=== PATIENT | male | born 1980 | race Caucasian/White ===

== ENCOUNTER → 2019-08-27 12:55 | Outpatient (CLI) | payer OTHER, SELFPAY ==
--- NOTE | 2019-08-27 13:01 | CT_ITS ---
STUDY: CT ABDOMEN AND PELVIS WITH CONTRAST REASON FOR EXAM: Male, 38 years old. MID ABD PAIN, HERNIA, N/D RADIATION DOSAGE (If Supplied By Facility): CTDIvol = ( 16.30 ) mGy, DLP = ( 1215.17 ) mGycm TECHNIQUE: Transaxial images were obtained from the dome of the diaphragm to the symphysis pubis with oral contrast. Oral and amp; IV Gastrografin and amp; 100mL Isovue-300 was administered. Sagittal and coronal images were reconstructed. Individualized dose optimization techniques were used for this CT. COMPARISON: None. FINDINGS: The visualized lung bases are unremarkable. The visualized portions of the heart are within normal limits. There is decreased attenuation of the liver consistent with steatosis. Normal gallbladder and extrahepatic biliary system. Normal spleen. Normal pancreas. Normal bilateral adrenal glands. Normal right kidney. Normal left kidney. There is a small hiatal hernia. Normal small intestine. Normal colon. The appendix is visualized and appears normal. Normal abdominal aorta. Normal inferior vena cava. Normal retroperitoneum. Normal urinary bladder. There is an umbilical hernia containing fat. The neck of the hernia measures 4.5 cm. Normal osseous structures. CT/Abdomen/Pelvis WITH Contrast IMPRESSION: Diffuse fatty infiltration of the liver. Umbilical hernia containing fat. The neck of the hernia measures 4.5 cm. Electronically Signed: Quincy Dutta, at 14:08 EST , Service support ,
== END ==
PROVIDERS: PCP Family Medicine; Referring Provider Family Medicine; Visit Provider Family Medicine
DX: R10.9 Unspecified abdominal pain (principal); K52.9 Noninfective gastroenteritis and colitis, unspecified; K42.9 Umbilical hernia without obstruction or gangrene
CPT/HCPCS: 74177; Q9967

== ENCOUNTER 2019-09-16 07:16 | Day surgery (SDC) | payer OTHER, SELFPAY ==
[2019-09-06 09:31] VITALS: BMI 36.0
--- NOTE | 2019-09-06 10:03 | HP_ITS ---
Intake Vital Signs 09/06/19 Height 5 ft 7 in 09/06/19 Weight: 230 lb 09/06/19 BP 120/85 H 09/06/19 Blood Pressure Location Rt brachial 09/06/19 Position Sitting 09/06/19 Respiration 16 Intake Visit Reasons: Hernia Head [employer] Tenn[employer] Required: No Is patient in pain?: No Allergies No Known Allergies Allergy (Unverified 09/06/19 09:32) Medications alprazolam 0.5 mg tablet 0.5 mg PO QHS PRN 09/06/19 [History Confirmed 09/06/19] omeprazole 20 mg capsule,delayed release 20 mg PO DAILY 09/06/19 [History Confirmed 09/06/19] sertraline 100 mg tablet 100 mg PO DAILY 09/06/19 [History Confirmed 09/06/19] zolpidem 5 mg tablet 5 mg PO QHS PRN 09/06/19 [History Confirmed 09/06/19] PFSH Medical History Anxiety (Acute) GERD (gastroesophageal reflux disease) (Acute) Surgical History S/P appendectomy (Acute) Family History Mother Bleeding disorder Diabetes HPI HPI HPI: CURT MICHELE, is a 38 M who presents to the office today for HPI HPI Surgical H&P: Yes HPI: CURT MICHELE, is a 38 M who presents to the office today for Umbilical hernia. The patient reports that his umbilical hernia has become very tender. He does have bulging at the umbilical area. He does not have any nausea or vomiting. He reports that he does have acid reflux. ROS General General: Yes weight change and fatigue HEENT HEENT: No difficulty swallowing, eye injury or eye surgery Endo Endocrine: No thyroid disease or diabetes mellitus Skin Skin: No rash or changing moles Musc Musculoskeletal: Yes back problems; no arthritis or rheumatoid arthritis Cardio Cardiovascular: No murmur, pacemaker, heart disease, atrial fibrillation, high blood pressure, heart attack, heart stent, palpitations, shortness of breat with exertion or chest pain Psych Psychiatric: Yes depression and anxiety Resp Respiratory: Yes shortness of breath, Yes sleep apnea, No cough, No COPD, No asthma, No emphysema, No wheezing Gastro Gastrointestinal: Yes abdominal pain, Yes nausea or vomiting, Yes diarrhea, No constipation, No blood in stool, Yes acid reflux, Yes hemorrhoids, Yes ulcers, No gallbladder problem, No black,tarry stools Romeo Hematologic: No blood thinners Neuro Neurologic: Yes system reviewed and no additional complaints, except as docu Exam Const General: cooperative Orientation: alert, oriented x3 HENMT Head: normal to inspection Ears: hearing grossly normal bilaterally Eyes General: appearance normal, both eyes and all related structures Visual Johnson: normal visual johnson by confrontation Neck Neck: normal visual inspection Chest Chest palpation & inspection: normal inspection of the chest Resp Effort & Inspection: normal respiratory effort Auscultation: clear to auscultation bilaterally Cardio Rate: regular rate Rhythm: regular rhythm Heart Sounds: no murmurs GI Inspection: non-distended Palpation: soft, hernia umbilical, nontender Musc Cervical Spine: normal cervical lordosis, cervical ROM normal Skin General: no rashes or lesions noted Neuro General: alert, oriented x3 Cranial Nerves: CN's II-XI intact bilaterally Cognition: normal cognition Extrem General: normal to inspection, full ROM Psych Appearance: grossly normal Affect: normal affect Assessment & Plan Problems 1. Umbilical hernia without obstruction and without gangrene K42.9 Plan The patient has been having increase in pain and size of his umbilical hernia. He had CT scan which did show this umbilical hernia containing fat. Given his size I would recommend a hybrid approach for this umbilical hernia repair. I discussed open and complete laparoscopic approach but I think a hybrid repair would offer him the most minimally invasive procedure as well as getting the mesh behind the fascia. I discussed the hybrid laparoscopic approach with him. I discussed the risks including but not limited to bleeding, infection, injury to underlying bowel, recurrence, mesh infection. The patient understands the risks and is willing to proceed. Booker Ludwig MD Pager: [facility] [address] [place] [address], [address] [place] [address] Office: Coding Level of Care Code Off vis,new,level 4 Diagnoses Umbilical hernia without obstruction and without gangrene K42.9 ??Obstruction and gangrene presence: without obstruction or gangrene Time Spent (min) 45 09/06/19 1003 <Electronically signed by Booker schrader MD> Date _ Booker Ludwig MD I have re-examined the patient. There are no clinical changes since date of exam.
[2019-09-16] VITALS (10 sets, daily range): BP systolic 99–130; BP diastolic 47–93; PULSE 64–100; RESP 15–18; TEMP 36.4–37.1; O2SAT 90–98; BMI 38.6
[2019-09-16] MEDS: Lactated Ringers 1,000 ML 100 ML IV ×2 (07:48→13:55)
[2019-09-16] MEDS: Cefazolin 2 GM in 0.9% Normal Saline 100 ML IV (08:18)
--- NOTE | 2019-09-16 08:50 | HERN_PTH ---
PATIENT: CURT MICHELE [place] [facility] [id number] AGE/SX: 38/M ROOM: RE09/16/[address]: Dr. Booker Ludwig MD : 1980 BED: DIS: 09/16/2019 SPEC #: [id number] RECD: 09/16/19 10:03 STATUS: BROOKE EMANUEL #: [id number] BRANDON: 09/16/19 08:[address]: Booker Ludwig DEPT: SURGICAL PATHOLOGY RECD BY: Abdi Schofield ENTERED: 09/16/19 10:38 SP TYPE: Hernia OTHR DR: Dr. Murtaza Hodge, DO Tissues: HERNIA Procedures: Surgery Specimen Level II HEADER OPERATION: Umbilical hernia repair with mesh PRE-OP DIAGNOSIS: Umbilical hernia TISSUE SUBMITTED: Hernia sac MICROSCOPIC DIAGNOSIS Soft tissue of umbilical region, excision: Consistent with hernia sac. AM:melissa 09/17/19 MICROSCOPIC DESCRIPTION Slides are reviewed. GROSS DESCRIPTION Received in fixative is one container labeled with the patient's name and designated hernia sac. The specimen consists of multiple irregular fragments of yellow-pink soft tissue that in aggregate measure 7 x 6 x 1.5 cm. Serial sections do not reveal mass lesions. Qualification Engineer sections are submitted in one cassette. / AM:melissa 09/16/19 TC:5 CPT: 02039
[2019-09-16] MEDS: Bupiv/Epi 0.25% 30 ML Vial (09:00)
--- NOTE | 2019-09-16 09:53 | PCM.OPRPT ---
Problem List (1) Umbilical hernia without obstruction or gangrene Status: Acute Report of Operation Date of Procedure: 09/16/19 Pre-Operative Diagnosis: Umbilical hernia Post-Operative Diagnosis: Same Surgery/Procedure Performed:: Laparoscopic umbilical hernia repair with mesh Specimen's removed: Hernia sac Description of Procedure: Patient was brought to the operating room and general anesthesia was induced. The abdomen was prepped and draped in usual sterile fashion. An incision was made in the left upper quadrant and using Visiport technique a 5 mm port was placed into the abdomen and the abdomen was insufflated to 15 mmHg. The abdomen was inspected and the hernia contents reduced. Next an incision was made just lateral to the umbilical hernia and the hernia sac was dissected out and removed. The fascial edges were dissected free and then two 0 PDS sutures in a [id number] fashion were placed in the hernia defect. A 12 mm port was then placed through the hernia defect into the abdomen and the abdomen was reinsufflated. A 5 mm port was placed in the right upper quadrant under direct visualization. 11 cm round ventral light ST mesh with echo deployment system was placed through the 12 mm port and the 12 mm port was removed. The PDS sutures were then tightened and tied. The echo positioning system was used to hold the mesh in position and secure strap tacks were used to secure the mesh in 4 quadrants. The deployment system was then removed through 5 mm port . It was removed in entirety. Next using secure strap tacker circumferential tacks were placed around the mesh and 2 rows. Next the air was released from the abdomen and the umbilical port was irrigated and suctioned. Local anesthetic was placed in all the skin incisions and the umbilical skin was tacked to the fascia using a 3-0 Vicryl suture. Interrupted 4-0 Monocryl sutures were then used to close all the skin incisions. Steri-Strips and bandages were then applied. Patient was taken to PACU in stable condition. Patient tolerated the procedure well. Grafts/Implants Used: [address] mesh - Admit VTE Documentation VTE Mechan Device Prophylaxis: SCD's
--- NOTE | 2019-09-16 09:58 | DCINST_ITS ---
Discharge Diet: Light diet - advance as tolerated Discharge Activity: Return to Normal Activity, May Not Drive - for 2-3 days or while taking narcotic pain meds., May Shower - with the bandage in place 1-2 days after surgery. Lifting Restrictions: 20 pounds for 4 weeks. Additional Activity Instructions:: Climbing stairs is fine, walking is encouraged. Sitting in bed may be uncomfortable. Sitting up using your lateral muscles (sitting up sideways) is usually more comfortable. Do not drive, work heavy equipment of sign legal documents for 24 hours. Pain medications may cause nausea, you should typically eat light foods as you take your pain medications. Pain medications may also cause constipation. If you have difficulty with this, discuss with your doctor. Call your doctor if your incision/area has: Continuous Slow Oozing, Sudden Increased Bleeding, Increased Pain/ Swelling, Increased Redness, Foul Smelling Discharge Call your doctor if you observe: Fever of 101 or Higher Suture Line Care: Avoid Pulling/Pushing, Avoid Pinching/Bending Change Dressing in (Days):: 3 - Leave steri-strips for 1 week. May protect with a guaze bandaid. Cleanse incision/area with: Keep Dressing Clean & Dry Allergies/Adverse Reactions: Allergies prochlorperazine [From Compazine] Allergy (Verified 09/16/19 07:29) Other JITTERY, ANXIOUS, SUICIDAL Medications to take at Discharge alprazolam 0.5 mg tablet 0.5 mg PO QHS PRN 09/06/19 omeprazole 20 mg capsule,delayed release 20 mg PO DAILY 09/06/19 sertraline 100 mg tablet 100 mg PO DAILY 09/06/19 zolpidem 5 mg tablet 5 mg PO QHS PRN 09/06/19 Ibuprofen 200 mg PO PRN PRN 09/13/19 Oxycodone HCl/Acetaminophen [Percocet 5-325 mg Tablet] 1 - 2 tab PO Q6H PRN 5 Days #40 tablet 09/16/19 The following prescriptions were given: Oxycodone HCl/Acetaminophen [Percocet 5-325 mg Tablet] 1 - 2 tab PO Q6H PRN 5 Days #40 tablet PRN Reason: Pain Score 4-10/10 Transmission Status: Sent to [facility] Test Results: Test results from this visit will be discussed in further detail at your follow- up appointment, if applicable. Please Follow Up With: Booker Ludwig MD When: Please call to schedule 2 week follow up appointment. [phone]
[2019-09-16] MEDS: oxyCODONE 5 MG Tablet PO (10:45)
[2019-09-16] MEDS: Tamsulosin HCl 0.4 MG Capsule PO (15:14)
--- NOTE | 2019-09-16 15:16 | SUR.PHASEII ---
Addendum entered by Emily Brown 09/16/19 15:17: STRAIGHT CATH FOR 1200 ML CLEAR YELLOW URINE. Original Note: BLADDER SCAN FOR [address] COLBY WHO ORDERED FLOMAX x 1, STRAIGHT CATH PATIENT AND MAY D/C HOME. IF UNABLE TO URINATE WITHIN 8 HOURS [1100 P.M.], REPORT TO THE [facility] EMERGENCY ROOM OR CALL DR COLBY.
== END 2019-09-16 15:50 | disposition home or self-care (01) ==
LOC: SDC 07:17 → AC 07:19
PROVIDERS: PCP Family Medicine; Referring Provider Surgery; Visit Provider Surgery
PROC: 0WQF4ZZ Repair Abdominal Wall, Percutaneous Endoscopic Approach (ICD-10-PCS; CPT 49652; principal; 2019-09-16 08:30)
DX: K42.9 Umbilical hernia without obstruction or gangrene (principal); K21.9 Gastro-esophageal reflux disease without esophagitis; F41.9 Anxiety disorder, unspecified; F32.9 Major depressive disorder, single episode, unspecified; K58.9 Irritable bowel syndrome, unspecified; K57.90 Diverticulosis of intestine, part unspecified, without perforation or abscess without bleeding; Z79.899 Other long term (current) drug therapy
CPT/HCPCS: 49652; 51702; 80048; 85025; 88302; 96361; 96374; 96375; 99284; J7030; J7120; A4216; J2405

== ENCOUNTER 2019-09-16 21:46 | Emergency (ER) | payer OTHER, SELFPAY ==
[2019-09-16 07:33] VITALS: BMI 38.6
[2019-09-16 21:47] VITALS: BP 131/78; PULSE 81; RESP 18; TEMP 36.9; O2SAT 97; BMI 36.0
[2019-09-16] MEDS: Lidocaine Jelly 2% 20 ML Syringe (URO-JET) 20 APPLIC TOPICAL (22:11)
[2019-09-16] MEDS: Morphine 4 MG/ML Syringe IV (22:12)
[2019-09-16] MEDS: Ondansetron 4 MG/2 ML Vial IV (22:13)
[2019-09-16 22:27] LABS: Absolute Neutrophil Count 10.2 X10^3/uL (2.0-7.7); Basophil# 0.06 X10^3/uL; Basophil% 0.5 % (0-1); Eosinophil# 0.06 X10^3/uL; Eosinophils% 0.5 % (0-5); Hematocrit 39.8 % (40-54); Lymphocyte % 11.1 % (19-41); Mean Corp Hgb Conc 35.2 g/dL (32-36); Mean Corpuscular Hgb 29.3 pg (27.0-32.0); Mean Corpuscular Volume 83.3 fL (80-94); Mean Platelet Vol. 9.5 fl (6.2-12.0); Monocyte# 0.79 X10^3/uL; Monocyte% 6.3 % (0-10); NRBC Flagged by Analyzer 0 % (0-5); Neutrophil # 10.22 X10^3/uL (2.7-7.7); Neutrophil % 80.9 % (47-70); Platelet Count 215 K/mm3 (150-450); RBC Distribution Width CV 12.3 % (11.6-14.6); RBC Distribution Width SD 37.7 fl (35.1-43.9); Red Blood Count 4.78 M/mm3 (4.6-6.2); White Blood Count 12.6 K/mm3 (4.4-11.0)
[2019-09-16 22:37] VITALS: PULSE 68; RESP 16; O2SAT 97
[2019-09-16 22:40] LABS: Anion Gap 7 (5-15); BUN 11 mg/dL (7-18); BUN/Creat Ratio 13.2 RATIO (10-20); Calcium,Total 8.6 mg/dL (8.5-10.1); Chloride 98 mmol/L (98-107); Creatinine, Serum 0.83 mg/dL (0.70-1.30); EST Glomerular Filtration Rate 108 mL/min (>60); Est Glom Filt Rate - Afr Amer 131 mL/min (>60); Estimated Creatinine Clearance 110.61 ml/min; Glucose 92 mg/dL (74-106); Potassium 3.7 mmol/L (3.5-5.1); Sodium Level 130 mmol/L (136-145)
--- NOTE | 2019-09-16 22:40 | ED.VIS.GEN ---
History of Present Illness Chief Complaint: Complaint Informant: Patient Onset: Today Context: Gradual Onset Timing: Continuous Current Severity: Moderate Maximum Severity: Moderate Narrative: The patient is an otherwise healthy 38-year-old male that presents to the emergency department with urinary retention. Patient had outpatient umbilical hernia repair today. He was discharged from same-day surgery. He states since being home, he has not been able to urinate. He states he got nauseated and felt lightheaded. He states he vomited twice and had some increasing abdominal pain. He states the pain has improved, but he still not been able to urinate. He states he has had urinary retention remotely, but has never had any problems with his prostate or bladder. He denies any fevers or chills. He is otherwise been in his normal state of health. Prior similar symptoms: Yes Recent Illness/Hospitalization: No Past Medical History - Allergies and Home Meds Allergies/Adverse Reactions: Allergies prochlorperazine [From Compazine] Allergy (Verified 09/16/19 21:50) Other JITTERY, ANXIOUS, SUICIDAL Primary Care Physician: Murtaza Hodge DO [Primary Care Provider] - Prior records reviewed: Yes Past Medical History: None Surgical History: herniorrhaphy Smoking Status: Never smoker Review of Systems General: Denies: Chills, Fever, Sweats Eyes: Denies: Visual changes - bilaterally, Diplopia ENT: Denies: Rhinorrhea, Sore throat Cardiovascular: Denies: Chest pain, Palpitations Respiratory: Denies: Dyspnea, Cough, Dyspnea on exertion Gastrointestinal: Reports: Abdominal pain, Nausea. Denies: Vomiting, Diarrhea, Melena, Hematochezia Genitourinary: Denies: Dysuria, Hematuria, Frequency Musculoskeletal: Denies: Back pain, Extremity Pain Skin: Denies: Rash, Wounds Neurological: Denies: Headache, Weakness, Numbness Physical Exam Vital Signs/Narrative: Vital Signs Temp Pulse Resp BP Pulse Ox 09/16/19 22:37 68 16 97 09/16/19 21:47 98.5 F 81 18 131/78 H 97 Inital Vital Signs reviewed: Yes General: Well nourished, Well developed, No Acute Distress Head: Normocephalic, Atraumatic Eyes: Perrl, EOMI ENT: Moist mucous membranes, No rhinorrhea Neck: Supple, Nontender Cardiovascular: Regular rate, Regular rhythm, No murmurs Respiratory: No distress, CTA bilaterally, Chest nontender Abdomen: Soft, Nondistended, Normal bowel sounds, Tender, - - Incision is clean and dry. There is no active bleeding. He has no focal tenderness.. Negative for: Guarding, Rebound tenderness Back: Nontender, Normal Inspection Extremities: Nontender, No edema Skin: Normal color, No rash Neurological: Alert, Oriented x3, Cranial nerves II-XII grossly intact, Normal Strength, Normal Sensation Psychological: Normal affect, Normal Mood Diagnostic/Tx/Re-eval - Medical Decision Making The patient presents with acute urinary retention after surgery. He also has some nausea mild abdominal pain. He has no focal tenderness. My suspicion for dangerous intra-abdominal process is low. Patient was treated with fluids, analgesics, and antiemetics. He was feeling improved. Screening labs were obtained. Rg catheter was placed and the patient had about 800 cc of clear urine out. At this point, I do feel it is safe for outpatient follow-up. We will leave the Rg in place for the next few days as I do feel that his urinary retention is likely a side effect of his anesthesia. He is comfortable with this plan of care and will be discharged home. Impression 1. Acute urinary retention status post surgery ED Disposition - Plan for ED Patient: Instructions: URINARY RETENTION, Male Referrals: Murtaza Hodge DO [Primary Care Provider] - 3-5 Days (For catheter removal)
[2019-09-16 23:10] VITALS: BP 127/74; PULSE 68; RESP 18; O2SAT 96
== END 2019-09-16 23:12 | disposition home or self-care (01) ==
LOC: ED 23:02
PROVIDERS: Emergency Provider Emergency Medicine; PCP Family Medicine
DX: R33.9 Retention of urine, unspecified (principal); Z98.890 Other specified postprocedural states; R11.2 Nausea with vomiting, unspecified; R42 Dizziness and giddiness
CPT/HCPCS: 51702; 80048; 85025; 96361; 96374; 96375; 99284; J7030; A4216; J2405

== ENCOUNTER → 2020-04-21 14:02 | Outpatient (CLI) | payer OTHER, SELFPAY ==
[2019-09-19 10:58] VITALS: BMI 36.0
[2020-04-21 17:04] LABS: Absolute Lymphocyte Count 2.86 X10^3/uL (0.83-4.51); Absolute Neutrophil Count 5.2 X10^3/uL (2.0-7.7); Basophil# 0.09 X10^3/uL; Eosinophil# 0.32 X10^3/uL; Eosinophils% 3.5 % (0-5); Hematocrit 43.8 % (40-54); Hemoglobin 14.9 g/dL (13.0-16.5); Lymphocyte # 2.86 X10^3/ul (4.0); Lymphocyte % 31.4 % (19-41); Mean Corpuscular Volume 85.2 fL (80-94); Mean Platelet Vol. 10.3 fl (6.2-12.0); Monocyte# 0.57 X10^3/uL; Monocyte% 6.3 % (0-10); NRBC Flagged by Analyzer 0 % (0-5); Neutrophil # 5.16 X10^3/uL (2.7-7.7); Neutrophil % 56.5 % (47-70); Platelet Count 264 K/mm3 (150-450); RBC Distribution Width CV 12.9 % (11.6-14.6); RBC Distribution Width SD 39.7 fl (35.1-43.9); Red Blood Count 5.14 M/mm3 (4.6-6.2); White Blood Count 9.1 K/mm3 (4.4-11.0)
[2020-04-21 17:52] LABS: ALB/GLOB Ratio 1.3 RATIO (0.9-2.4); AST(SGOT) 47 U/L (15-37); Alanine Aminotransfer ALT/SGPT 114 U/L (16-61); Albumin, Serum 4.4 g/dL (3.2-5.0); Alkaline Phosphatase 93 U/L (45-117); Anion Gap 9 (5-15); BUN 16 mg/dL (7-18); BUN/Creat Ratio 16.5 RATIO (10-20); CRP < 2.90 mg/L (0.0-3.0); Calcium,Total 8.7 mg/dL (8.5-10.1); Chloride 101 mmol/L (98-107); Creatinine, Serum 0.97 mg/dL (0.70-1.30); EST Glomerular Filtration Rate 91 mL/min (>60); Est Glom Filt Rate - Afr Amer 110 mL/min (>60); Globulin 3.5 g/dL (2.2-4.2); Glucose 117 mg/dL (74-106); Lipase 211 U/L (73-393); Potassium 3.8 mmol/L (3.5-5.1); Protein, Total 7.9 g/dL (6.4-8.2); Sodium Level 136 mmol/L (136-145)
== END ==
PROVIDERS: PCP Family Medicine; Visit Provider Family Medicine
DX: R10.9 Unspecified abdominal pain (principal)
CPT/HCPCS: 36415; 80053; 83690; 85025; 86140

== ENCOUNTER 2021-02-06 22:11 | Emergency (ER) | payer OTHER, SELFPAY ==
[2019-09-19 10:58] VITALS: BMI 36.0
[2021-02-06 22:11] VITALS: BP 124/79; PULSE 97; RESP 15; TEMP 37.4; O2SAT 88; BMI 38.3
--- NOTE | 2021-02-06 22:41 | EKG12_ITS ---
Test Reason : DYSRHYTHMIA Blood Pressure : / mmHG Vent. Rate : 085 BPM Atrial Rate : 085 BPM P-R Int : 122 ms QRS Dur : 074 ms QT Int : 346 ms P-R-T Axes : 025 013 028 degrees QTc Int : 411 ms Normal sinus rhythm Normal ECG Confirmed by NBA VILLA, JUSTIN ([id number]), communications editor SHWETHA RAM ([id number]) on 02/11/2021 1:18:01 PM Referred By: ROBBIN Confirmed By:JUSTIN ARANGO MD
--- NOTE | 2021-02-06 22:42 | EX.ED.DYSGE1 ---
HPI History of Present Illness Chief Complaint: General Illness Informant: patient Onset/Context/Timing Onset: Days (8) Context: Gradual Onset Timing: Continuous Quality: Wheezing Location: Chest Worsened by: At night Relieved by: Nothing Narrative Narrative: Patient presents with shortness of breath and myalgias that have been getting worse over the past 8 days. Patient states he took a home COVID-19 test which was positive. Patient states his tested positive for COVID-19 3 days before that. Patient states he was given a prescription for Zithromax and ivermectin by his primary care physician. Patient states this has not been helping. Patient states he feels like he is wheezing in his chest. Patient admits to a cough with some yellow-green sputum. Patient admits to chills at home. Patient also admits to some nausea, vomiting, diarrhea. [facility] Medical History (Updated 02/07/21 @ 02:[address] Tomás Whitaker DO) Anxiety GERD (gastroesophageal reflux disease) Home Medications alprazolam 0.5 mg tablet 0.5 mg PO BID PRN 09/06/19 [History Last Taken Unknown] omeprazole 20 mg capsule,delayed release 20 mg PO DAILY 09/06/19 [History Last Taken 09/16/19 06:00] sertraline 100 mg tablet 100 mg PO DAILY 09/06/19 [History Last Taken Unknown] zolpidem 5 mg tablet 5 mg PO QHS PRN 09/06/19 [History Last Taken Unknown] dexamethasone [Decadron] 6 mg PO DAILY #7 tab 02/07/21 [Rx Last Taken Unknown] Allergy/AdvReac Type Severity Reaction Status Date / Time prochlorperazine Allergy Other Verified 02/06/21 22:19 [From Compazine] Family History Mother Bleeding disorder Diabetes Surgical History S/P appendectomy Social History Smoking Status: Never smoker alcohol intake: never ROS ROS ED Constitutional Constitutional ED: Reports chills and subjective Eyes Eyes: Reports blurry vision; Denies diplopia ENT ENT ED: Reports rhinorrhea and sore throat Cardiovascular Cardiovascular: Reports chest pain; Denies palpitations Respiratory/Chest Respiratory/Chest: Reports cough, dyspnea and sputum Gastrointestinal Gastrointestinal: Reports diarrhea, nausea and vomiting Genitourinary Genitourinary ED: Denies dysuria or hematuria Musculoskeletal Musculoskeletal: Reports arthralgias and myalgias Integumentary Denies abscess or rash Neurologic Neurologic: Reports headache(s) and weakness Allergic/Immunologic Allergic/Immunologic ED: Denies mouth swelling, tongue swelling or urticaria EXAM Physical Exam Const Vital Signs: 02/06/21 22:11 02/06/21 23:37 02/07/21 00:00 Temperature 99.4 F H 100.1 F H 99.0 F Temperature Source Oral Temporal Temporal Pulse Rate 97 82 82 Respiratory Rate 15 16 16 Blood Pressure 124/79 H 127/83 H 117/75 Blood Pressure Mean 94 97 89 Pulse Ox 88 96 96 Oxygen Delivery Method Room Air Room Air Room Air 02/07/21 00:11 02/07/21 01:52 Temperature 99.0 F Temperature Source Temporal Pulse Rate 82 71 Respiratory Rate 17 21 H Blood Pressure 117/75 127/76 H Blood Pressure Mean 89 93 Pulse Ox 96 94 Oxygen Delivery Method Room Air Room Air Positive well nourished and well developed General Appearance ED: well developed HEENT Reports moist mucous membranes Neck supple and no JVD Resp normal respiratory effort and clear to auscultation bilaterally Cardio regular rate, regular rhythm and no murmurs GI normal to inspection, nondistended, normoactive bowel sounds and non-tender Palpation: soft Extremity normal to inspection General Extremety ED: Negative for edema or tenderness General Extremity: Negative for edema Neuro oriented x3, CN's II-XII intact bilaterally and no sensory deficits noted Sensorium / Orientation: alert Motor Exam: strength 5/5 throughout Psych mental status grossly normal Skin no rashes or lesions noted MDM MDM MDM Narrative Medical decision making narrative: EKG was obtained. On my interpretation, it showed a normal sinus rhythm with a rate of 85. LA interval, QRS interval, and QTc intervals were all normal. [place] was normal. There are no acute ST or T wave changes. CBC was within normal limits. Comprehensive metabolic profile was normal. Lactate was normal. High-sensitivity troponin was normal. Initial COVID-19 rapid antigen was negative. Portable chest x-ray was obtained. There is 1 view. On my interpretation, there are bilateral infiltrates consistent with COVID-19 pneumonia. There is no cardiomegaly noted. Bony thorax is normal. Radiologist also interpreted the x-ray and agrees. A COVID-19 PCR was obtained and was positive. Patient was given 6 puffs of an albuterol inhaler. Patient is feeling better on reevaluation. Patient was able to ambulate and maintain oxygen saturation of 94% on room air. Because of this I think the patient is able to go home. Patient will be given a prescription for Decadron. Patient was instructed to follow-up with his primary care physician in 3 to 5 days. Patient understood and was agreeable with the plan. All questions were answered. Lab Data Attestation: I reviewed the patient's lab results. Labs: Laboratory Results - last 24 hr 02/06/21 02/06/21 02/06/21 23:00 23:00 23:00 WBC 5.8 RBC 4.96 Hgb 14.2 Hct 42.1 MCV 84.9 MCH 28.6 MCHC 33.7 RDW Std Deviation 39.8 RDW Coeff of Dea 12.9 Plt Count 182 MPV 9.8 Immature Gran % (Auto) 2.100 H Neut % (Auto) 68.3 Lymph % (Auto) 24.4 Karnes % (Auto) 3.5 Eos % (Auto) 1.2 Baso % (Auto) 0.5 Absolute Neuts (auto) 4.0 Absolute Lymphs (auto) 1.41 Nucleated RBC % 0 Differential Comment SCANNED Reactive Lymphocytes RARE Sodium 136 Potassium 3.8 Chloride 106 Carbon Dioxide 22.0 Anion Gap 8 BUN 12 Creatinine 0.84 Estim Creat Clear Calc 107.11 Est GFR (MDRD) Af Amer 129 Est GFR (MDRD) Non-Af 107 BUN/Creatinine Ratio 14.3 Glucose 107 H Lactic Acid 0.8 Calcium 8.3 L Total Bilirubin 0.40 AST 78 H ALT 117 H Alkaline Phosphatase 83 Troponin I High Sens < 3.0 L Total Protein 7.6 Albumin 3.8 Globulin 3.8 Albumin/Globulin Ratio 1.0 COVID-19 (JOHN) 02/06/21 23:32 WBC RBC Hgb Hct MCV MCH MCHC RDW Std Deviation RDW Coeff of Dea Plt Count MPV Immature Gran % (Auto) Neut % (Auto) Lymph % (Auto) Karn[place] % (Auto) Eos % (Auto) Baso % (Auto) Absolute Neuts (auto) Absolute Lymphs (auto) Nucleated RBC % Differential Comment Reactive Lymphocytes Sodium Potassium Chloride Carbon Dioxide Anion Gap BUN Creatinine Estim Creat Clear Calc Est GFR (MDRD) Af Amer Est GFR (MDRD) Non-Af BUN/Creatinine Ratio Glucose Lactic Acid Calcium Total Bilirubin AST ALT Alkaline Phosphatase Troponin I High Sens Total Protein Albumin Globulin Albumin/Globulin Ratio COVID-19 (JOHN) Positive Radiography Chest X-Ray - ED: 1 View, Read by ED Physician, Read by Radiologist, Right Infiltrate and Left Infiltrate Diagnostic Testing: Radiology Impression Chest X-Ray 02/06/21 22:46 IMPRESSION: Bilateral airspace opacities concerning for infection. Electronically Signed: Rocky Rodriguez MD at 23:12 EDT Tel , Service support , EKG Initial EKG: Attestation: I personally reviewed and interpreted this EKG as follows: Interpretation: Sinus Rhythm (85) and No Acute Injury Pattern Discharge Plan Triage Chief Complaint: General Illness ED Provider: Tomás Whitaker Dx/Rx/DC Orders Clinical Impression: Pneumonia due to COVID-19 virus Instructions: Coronavirus Disease 2019 (COVID-19): Caring for Yourself or Others Prescriptions: New dexamethasone [Decadron] 6 mg tablet 6 mg PO DAILY Qty: 7 RF: 0 No Action sertraline 100 mg tablet 100 mg PO DAILY RF: 0 omeprazole 20 mg capsule,delayed release(DR/EC) 20 mg PO DAILY RF: 0 zolpidem 5 mg tablet 5 mg PO QHS PRN (Reason: Sleep) RF: 0 alprazolam [Xanax] 0.5 mg tablet 0.5 mg PO BID PRN (Reason: Anxiety) RF: 0 Primary Care Provider: Murtaza Hodge Referrals: Murtaza Hodge DO [Primary Care Provider] - 3-5 Days Disposition Disposition: Home, Self Care
--- NOTE | 2021-02-06 22:44 | ED.RN ---
NO OLD EKGS IN MUSE
--- NOTE | 2021-02-06 22:46 | RAD_ITS ---
INDICATION: cough EXAMINATION/TECHNIQUE: X-RAY - XR Chest 1 View COMPARISON: None. FINDINGS: Bilateral airspace opacities. The cardiomediastinal silhouette is unremarkable. No pleural effusion or pneumothorax. No acute osseous abnormalities. RAD/Chest 1 View (Portable) IMPRESSION: Bilateral airspace opacities concerning for infection. Electronically Signed: Rocky Rodriguez MD at 23:12 EDT Tel , Service support ,
[2021-02-06 23:35] LABS: AST(SGOT) 78 U/L (15-37); Alanine Aminotransfer ALT/SGPT 117 U/L (16-61); Albumin, Serum 3.8 g/dL (3.2-5.0); Alkaline Phosphatase 83 U/L (45-117); Anion Gap 8 (5-15); BUN 12 mg/dL (7-18); BUN/Creat Ratio 14.3 RATIO (10-20); Calcium,Total 8.3 mg/dL (8.5-10.1); Chloride 106 mmol/L (98-107); Creatinine, Serum 0.84 mg/dL (0.70-1.30); EST Glomerular Filtration Rate 107 mL/min (>60); Est Glom Filt Rate - Afr Amer 129 mL/min (>60); Estimated Creatinine Clearance 107.11 ml/min; Globulin 3.8 g/dL (2.2-4.2); Glucose 107 mg/dL (74-106); Potassium 3.8 mmol/L (3.5-5.1); Protein, Total 7.6 g/dL (6.4-8.2); Sodium Level 136 mmol/L (136-145); Troponin-I HS < 3.0 pg/mL (3.0-78.5)
[2021-02-06 23:37] VITALS: BP 127/83; PULSE 82; RESP 16; TEMP 37.8; O2SAT 96
[2021-02-06 23:37] LABS: Absolute Lymphocyte Count 1.41 X10^3/uL (0.83-4.51); Basophil# 0.03 X10^3/uL; Basophil% 0.5 % (0-1); Eosinophil# 0.07 X10^3/uL; Eosinophils% 1.2 % (0-5); Hematocrit 42.1 % (40-54); Hemoglobin 14.2 g/dL (13.0-16.5); Lymphocyte # 1.41 X10^3/ul (0.83-4.51); Lymphocyte % 24.4 % (19-41); Mean Corp Hgb Conc 33.7 g/dL (32-36); Mean Corpuscular Hgb 28.6 pg (27.0-32.0); Mean Corpuscular Volume 84.9 fL (80-94); Mean Platelet Vol. 9.8 fl (6.2-12.0); Monocyte% 3.5 % (0-10); NRBC Flagged by Analyzer 0 % (0-5); Neutrophil # 3.96 X10^3/uL (2.7-7.7); Neutrophil % 68.3 % (47-70); POSITIVE MORPHOLOGY YES; Platelet Count 182 K/mm3 (150-450); RBC Distribution Width CV 12.9 % (11.6-14.6); RBC Distribution Width SD 39.8 fl (35.1-43.9); Red Blood Count 4.96 M/mm3 (4.6-6.2); White Blood Count 5.8 K/mm3 (4.4-11.0)
[2021-02-06 23:44] LABS: Lactic Acid 0.8 mmol/L (0.4-1.9)
[2021-02-06 23:49] LABS: Differential Indicated SCAN CRITERIA MET
[2021-02-07] VITALS: BP 117/75; PULSE 82; RESP 16; TEMP 37.2; O2SAT 96
[2021-02-07 00:11] VITALS: BP 117/75; PULSE 82; RESP 17; TEMP 37.2; O2SAT 96
[2021-02-07 00:16] LABS: Differential Comment SCANNED; Reactive Lymphocyte RARE
[2021-02-07] MEDS: Acetaminophen 500 MG Tablet 1000 MG PO (00:17)
[2021-02-07 00:59] LABS: Probe Check PASS; Specimen Processing Control PASS
[2021-02-07 01:10] VITALS: O2SAT 95
[2021-02-07 01:52] VITALS: BP 127/76; PULSE 71; RESP 21; O2SAT 94
[2021-02-07 02:06] VITALS: BP 121/75; PULSE 79; RESP 17; TEMP 37.2; O2SAT 94
== END 2021-02-07 02:06 | disposition home or self-care (01) ==
PROVIDERS: Emergency Provider Emergency Medicine; PCP Family Medicine
DX: U07.1 COVID-19 (principal); J12.82 Pneumonia due to coronavirus disease 2019; F41.9 Anxiety disorder, unspecified; K21.9 Gastro-esophageal reflux disease without esophagitis; Z79.899 Other long term (current) drug therapy
CPT/HCPCS: 71045; 80053; 83605; 84484; 85025; 87040; 87426; 87635; 93005; 96360; 99285; J7030; U0005; U0003

== ENCOUNTER → 2021-05-17 09:08 | Outpatient (CLI) | payer OTHER, SELFPAY ==
--- NOTE | 2021-05-17 09:11 | VDLE_ITS ---
Reason For Study: Pain Procedure LEFT This is a venous duplex using B-mode, color GSV is normal. flow and spectral Doppler. CFV is compressible, spontaneous, phasic, Exam performed in department. competent, and demonstrates normal A preliminary report was called and/or faxed augmentation. to [facility]. FV is compressible, spontaneous, phasic, competent and demonstrates normal augmentation. POP V is compressible, spontaneous, phasic, competent and demonstrates normal augmentation. T/P Trunk is compressible. PTV is compressible. LT PerV is compressible. VL/Venous Duplex US, Unilateral Interpretation Summary Deep veins of the left lower extremity are patent and compressible segmentally. There is no evidence of left lower extremity deep vein thrombosis. Valvular competence appears intac t within the proximal deep venous system on the left . The left great saphenous vein appears patent a nd compressible segmentally. Ordering Physician: Murtaza Hodge Referring Physician: Murtaza Hodge Performed By: Aida Cunningham RVT
== END ==
PROVIDERS: PCP Family Medicine; Referring Provider Family Medicine; Visit Provider Family Medicine
DX: M79.662 Pain in left lower leg (principal)
CPT/HCPCS: 93971

== ENCOUNTER → 2022-04-08 | Outpatient (CLI) | payer OTHER, SELFPAY ==
[2022-04-08 15:40] LABS: Erythrocyte Sedimentation Rate 1 mm/hr (0-20)
[2022-04-08 16:18] LABS: CRP < 2.90 mg/L (0.0-3.0); Rheumatoid Factor < 10.0 IU/mL (<15)
[2022-04-11 14:47] LABS: ANTINUCLEAR ANTIBODIES DIRECT Negative (Negative)
[2022-04-13 16:41] LABS: CCP IgG Antibodies 6 units (0-19)
== END | disposition home or self-care (01) ==
LOC: MTLAB 13:57
PROVIDERS: PCP Family Medicine; Referring Provider Family Medicine; Visit Provider Family Medicine
DX: M13.0 Polyarthritis, unspecified (principal)
CPT/HCPCS: 36415; 85652; 86038; 86140; 86200; 86225; 86235; 86431

== ENCOUNTER → 2022-12-21 | Outpatient (CLI) | payer OTHER, SELFPAY ==
--- NOTE | 2022-12-21 11:20 | RAD_ITS ---
STUDY: X-RAY - ABDOMEN/PELVIS REASON FOR EXAM: Male, 41 years old. Period left rib pain. TECHNIQUE: Single AP view of the abdomen / pelvis. COMPARISON: CT of the abdomen and pelvis, August 27, 2019. FINDINGS: Normal visualized lung bases. There is an unremarkable bowel gas pattern. There is no demonstrated free abdominal air. The visualized liver, spleen and kidneys are grossly normal in size and morphology. Normal soft tissue structures. Normal visualized osseous structures. RAD/Abdomen Single View IMPRESSION: Normal x-ray examination of the abdomen and pelvis. Electronically Signed: Luis Gaspar DO at 22:39 EDT ,
[2022-12-21 12:16] LABS: Absolute Lymphocyte Count 2.09 X10^3/uL (0.83-4.51); Absolute Neutrophil Count 4.8 X10^3/uL (2.0-7.7); Basophil# 0.08 X10^3/uL; Eosinophil# 0.22 X10^3/uL; Eosinophils% 2.8 % (0-5); Hematocrit 42.5 % (40-54); Hemoglobin 13.9 g/dL (13.0-16.5); Lymphocyte # 2.09 X10^3/ul (0.83-4.51); Lymphocyte % 26.8 % (19-41); Mean Corp Hgb Conc 32.7 g/dL (32-36); Mean Corpuscular Volume 85.7 fL (80-94); Monocyte% 6.4 % (0-10); NRBC Flagged by Analyzer 0 % (0-5); Neutrophil # 4.75 X10^3/uL (2.7-7.7); Neutrophil % 61.1 % (47-70); Platelet Count 242 K/mm3 (150-450); RBC Distribution Width CV 13.1 % (11.6-14.6); Red Blood Count 4.96 M/mm3 (4.6-6.2); White Blood Count 7.8 K/mm3 (4.4-11.0)
[2022-12-21 12:37] LABS: ALB/GLOB Ratio 1.3 RATIO (0.9-2.4); AST(SGOT) 23 U/L (15-37); Alanine Aminotransfer ALT/SGPT 59 U/L (16-61); Albumin, Serum 4.1 g/dL (3.2-5.0); Alkaline Phosphatase 73 U/L (45-117); Anion Gap 8 (5-15); BUN 15 mg/dL (7-18); BUN/Creat Ratio 16.3 RATIO (10-20); Calcium,Total 8.7 mg/dL (8.5-10.1); Chloride 105 mmol/L (98-107); Cholesterol 186 mg/dL (200); Creatinine, Serum 0.92 mg/dL (0.70-1.30); EST Glomerular Filtration Rate 95 mL/min (>60); Est Glom Filt Rate - Afr Amer 115 mL/min (>60); Globulin 3.2 g/dL (2.2-4.2); Glucose 115 mg/dL (74-106); High Density Lipoprotein 58 mg/dL; Potassium 4.1 mmol/L (3.5-5.1); Protein, Total 7.3 g/dL (6.4-8.2); Sodium Level 139 mmol/L (136-145); Triglycerides 210 mg/dL; Very Low Density Lipoprotein 42 mg/dL (5-40)
[2022-12-21 12:45] LABS: Hemoglobin A1c 5.9 % (3.8-5.6)
[2022-12-22 16:09] LABS: Endomysial Antibody IgA Negative (Negative); Immunoglobulin A 129 mg/dL (90-386); t-Transglutaminase IgA <2 U/mL (0-3)
== END | disposition home or self-care (01) ==
PROVIDERS: PCP Family Medicine; Referring Provider Family Medicine; Visit Provider Family Medicine
DX: Z00.00 Encounter for general adult medical examination without abnormal findings (principal); R10.12 Left upper quadrant pain; R10.2 Pelvic and perineal pain
CPT/HCPCS: 36415; 74018; 80053; 80061; 82784; 83036; 83516; 85025; 86255

== ENCOUNTER 2023-03-05 15:53 | Emergency (ER) | payer OTHER, SELFPAY ==
[2023-03-05 15:55] VITALS: BP 141/95; PULSE 75; RESP 18; TEMP 35.8; O2SAT 98; BMI 42.2
--- NOTE | 2023-03-05 16:35 | RAD_ITS ---
STUDY: X-RAY CHEST REASON FOR EXAM: Male, 42 years old. fall TECHNIQUE: Frontal and lateral views of the chest. COMPARISON: 02/06/2021. FINDINGS: The lungs are clear and expanded. There is no demonstrated pleural abnormality. Normal size heart. Normal mediastinum and rubina. Normal visualized pulmonary arteries. Normal visualized aortic arch and descending thoracic aorta. Normal visualized thoracic spine. Normal visualized ribs, clavicles, and shoulders. There is no demonstrated abnormality of the visualized soft tissue structures of the upper abdomen. RAD/Chest PA and Lateral IMPRESSION: Normal x-ray examination of the chest. Electronically Signed: Nick Wills MD at 17:25 EDT ,
--- NOTE | 2023-03-05 17:47 | CT_ITS ---
STUDY: CT ABDOMEN AND PELVIS WITH CONTRAST REASON FOR EXAM: Male, 42 years old. Blunt trauma, pain right upper quadrant with guard -- TRAUMA ONLY: IV Contrast. Dont wait for creatinine RADIATION DOSAGE (If Supplied By Facility): CTDIvol = ( 17.02 ) mGy, DLP = ( 1283.48 ) mGycm TECHNIQUE: Transaxial images were obtained from the dome of the diaphragm to the symphysis pubis without oral contrast. IV 100mL Isovue-370 was administered. Sagittal and coronal images were reconstructed. Individualized dose optimization techniques were used for this CT. COMPARISON: 08/27/2019. FINDINGS: The visualized lung bases are unremarkable. The visualized portions of the heart are within normal limits. There is decreased attenuation of the liver consistent with steatosis. There is hepatomegaly. Normal gallbladder and extrahepatic biliary system. There is mild splenomegaly. Normal pancreas. Normal bilateral adrenal glands. Normal right kidney. Normal left kidney. Evaluation of the GI tract is limited by absence of oral contrast. Cannot exclude stomach wall thickening. No dilated loops of bowel or evidence for obstruction. Cannot exclude segmental thickening of the march of the small or large bowel. Cannot exclude enteritis or colitis. Appendix within normal limits. Normal abdominal aorta. Normal inferior vena cava. Normal retroperitoneum. Normal urinary bladder. There is a small umbilical hernia containing fat. Normal osseous structures. CT/Abdomen/Pelvis WITH Contrast IMPRESSION: Hepatosplenomegaly. No acute abnormalities. Electronically Signed: Nick Wills MD at 18:47 EDT ,
[2023-03-05 18:34] LABS: Absolute Lymphocyte Count 2.54 X10^3/uL (0.83-4.51); Absolute Neutrophil Count 6.2 X10^3/uL (2.0-7.7); Basophil# 0.07 X10^3/uL; Basophil% 0.7 % (0-1); Eosinophil# 0.11 X10^3/uL; Eosinophils% 1.1 % (0-5); Hematocrit 39.2 % (40-54); Hemoglobin 13.4 g/dL (13.0-16.5); Lymphocyte # 2.54 X10^3/ul (0.83-4.51); Lymphocyte % 26.2 % (19-41); Mean Corp Hgb Conc 34.2 g/dL (32-36); Mean Corpuscular Hgb 28.5 pg (27.0-32.0); Mean Corpuscular Volume 83.2 fL (80-94); Mean Platelet Vol. 9.4 fl (6.2-12.0); Monocyte# 0.65 X10^3/uL; Monocyte% 6.7 % (0-10); NRBC Flagged by Analyzer 0 % (0-5); Neutrophil # 6.18 X10^3/uL (2.7-7.7); Neutrophil % 63.8 % (47-70); Platelet Count 223 K/mm3 (150-450); RBC Distribution Width CV 13.2 % (11.6-14.6); RBC Distribution Width SD 40.1 fl (35.1-43.9); Red Blood Count 4.71 M/mm3 (4.6-6.2); White Blood Count 9.7 K/mm3 (4.4-11.0)
--- NOTE | 2023-03-05 18:34 | EX.ED.GENINJ ---
HPI History of Present Illness Chief Complaint: Chest Other Detail of Chief Complaint: Injury lower right rib cage and right upper quadrant status post fall Informant: patient and spouse/S.O. Onset/Context/Timing Onset: Today and Hours Mechanism/Context: Blunt Injury and Fall Quality of Pain: Dull, Aching and Throbbing Location: Midclavicular posterior axillary line right side over ribs [phone] and righ Current Severity: Mild Maximum Severity: Severe Worsened by: Movement, breathing and palpation Relieved by: Nothing Associated Symptoms Associated Symptoms: Negative for Parasthesias, Weakness, Loss of function, Inability to ambulate, Loss of consciousness or Amnesia Length of loss of consciousness: Not applicable Narrative Narrative: Patient is a 89 old male who had issues with left upper quadrant pain for some time. He is scheduled to see GI. He is scheduled for an outpatient CAT scan as well as blood work. He presents today after fall. He sustained blunt trauma to the right side of his lower rib cage and right upper quadrant. He complains of pain with movement, breathing and palpation. He denies head trauma. Denies loss of conscious. Denies neck pain. He denies paresthesia, anesthesia or motor weakness upper or lower extremity presently at the time of the injury. He states he tripped. He denies hematuria. He is not on anticoagulant. Tetanus Immunization: 5-10 years Prior similar symptoms: No Recent Illness/Hospitalization: No [facility] Medical History (Updated 03/05/23 @ 19:[address] Mina Cuevas MD) Anxiety GERD (gastroesophageal reflux disease) Home Medications alprazolam 0.5 mg tablet (Xanax) 0.5 mg PO BID PRN Anxiety 09/06/19 [History Last Taken Unknown] omeprazole 20 mg capsule,delayed release 20 mg PO DAILY 09/06/19 [History Last Taken 09/16/19 06:00] sertraline 100 mg tablet 100 mg PO DAILY 09/06/19 [History Last Taken Unknown] zolpidem 5 mg tablet 5 mg PO QHS PRN Sleep 09/06/19 [History Last Taken Unknown] dexamethasone 6 mg tablet (Decadron) 6 mg PO DAILY #7 tabs 02/07/21 [Rx Last Taken Unknown] hydrocodone-acetaminophen 5-325mg 5mg-325mg 1 tab PO Q6H PRN PRN Pain 3 days #10 TABLETS 03/05/23 [Rx Last Taken Unknown] Allergy/AdvReac Type Severity Reaction Status Date / Time prochlorperazine Allergy Other Verified 03/05/23 15:56 [From Compazine] Family History Mother Bleeding disorder Diabetes Surgical History S/P appendectomy Social History Smoking Status: Never smoker alcohol intake: never ROS ROS ED Constitutional Constitutional ED: Denies chills, fever(s), subjective, sweats or weight loss Eyes Eyes: Denies blurry vision or change in vision ENT ENT ED: Reports other Details: Denies epistaxis. ; Denies ear pain or sore throat Cardiovascular Cardiovascular: Reports chest pain; Denies palpitations or paroxysmal nocturnal dyspnea Respiratory/Chest Respiratory/Chest: Reports dyspnea and dyspnea on exertion; Denies cough, paroxysmal nocturnal dyspnea or sputum Gastrointestinal Gastrointestinal: Reports abdominal pain; Denies diarrhea, nausea or vomiting Genitourinary Genitourinary ED: Denies dysuria, hematuria or urinary frequency Musculoskeletal Musculoskeletal: Denies arthralgias, back pain, myalgias or neck pain Integumentary Denies rash Neurologic Neurologic: Denies headache(s), paresthesias or weakness Psychiatric Psychiatric: Denies anxiety or depression Endocrine Endocrinology: Denies cold intolerance or heat intolerance Hematologic/Lymphatic Hematologic/Lymphatic: Denies easy bleeding or easy bruising EXAM Physical Exam Const Vital Signs: 03/05/23 15:55 03/05/23 17:46 Temperature 96.4 F L Temperature Source Temporal Pulse Rate 75 Respiratory Rate 18 Respiratory Effort Normal Non-Labored Blood Pressure 141/95 H Blood Pressure Mean 110 Pulse Ox 98 Oxygen Delivery Method Room Air Positive well nourished, well developed and obese General Appearance ED: well developed; Negative for NAD Nutritional Appearance: obese HEENT HEENT Narrative: Head is normocephalic. There is no clinical signs of basilar skull fracture. There is no septal deviation hematoma. There is no dental trauma. atraumatic Eyes PERRL and EOMs intact bilaterally Neck full ROM General: Negative for tenderness Chest Wall inspection of chest normal and palpation of chest normal Chest Narrative: PalpatePatient has pain over his lower right ribs. There is no crepitus continuous air. Resp normal respiratory effort and clear to auscultation bilaterally Effort and Inspection: pain with movement Cardio regular rhythm, S1 normal heart sound, S2 normal heart sound and no murmurs GI normal to inspection, nondistended, normoactive bowel sounds, non-distended and no masses; Negative for non-tender GI Narrative: Patient grimaces to deep palpation in the right upper quadrant. There is no hepatosplenomegaly. Bowel sounds are diminished. Back/Spine normal to inspection and no thoracic nor lumbar tenderness Extremity normal to inspection and full ROM General Extremety ED: Negative for edema General Extremity: Negative for edema Neuro oriented x3, CN's II-XII intact bilaterally and moves all extremities James Coma Scale: document GCS findings Spontaneous Obeys Commands Oriented 15 Motor Exam: strength 5/5 throughout Psych mental status grossly normal and thought process normal Skin no rashes or lesions noted, no wounds, skin turgor normal and no jaundice MDM MDM MDM Narrative Medical decision making narrative: Chest x-ray obtained per nurse protocol. Chest x-ray was obtained reviewed and interpreted by me as negative for fracture, pneumothorax or hemothorax. Since patient has significant pain lower rib cage and right upper quadrant concern for hepatic injury in light of mechanism. CT of the abdomen pelvis with IV contrast was ordered. CT was independent reviewed interpreted by me as negative for any injury to the liver or spleen. Awaiting formal read by radiologist, 1840. Lab Data Attestation: I reviewed the patient's lab results. Lab results narrative: CBC and electrolyte panel are unremarkable. Glucose slightly elevated 120 with normal CO2 and anion gap. Labs: Laboratory Results - last 24 hr 03/05/23 18:25 WBC 9.7 RBC 4.71 Hgb 13.4 Hct 39.2 L MCV 83.2 MCH 28.5 MCHC 34.2 RDW Std Deviation 40.1 RDW Coeff of Dea 13.2 Plt Count 223 MPV 9.4 Immature Gran % (Auto) 1.500 H Neut % (Auto) 63.8 Lymph % (Auto) 26.2 Dickinson % (Auto) 6.7 Eos % (Auto) 1.1 Baso % (Auto) 0.7 Absolute Neuts (auto) 6.2 Absolute Lymphs (auto) 2.54 Nucleated RBC % 0 Sodium 135 L Potassium 3.7 Chloride 103 Carbon Dioxide 26.0 Anion Gap 6 BUN 15 Creatinine 0.98 Estim Creat Clear Calc 89.93 Est GFR (MDRD) Af Amer 107 Est GFR (MDRD) Non-Af 89 BUN/Creatinine Ratio 15.4 Glucose 120 H Calcium 8.9 Radiography Diagnostic Testing: Clinical Impression(s) from Imaging Studies Chest X-Ray 03/05/23 16:35 IMPRESSION: Normal x-ray examination of the chest. Electronically Signed: Nick Wills MD at 17:25 EDT , Abdomen/Pelvis CT 03/05/23 17:47 IMPRESSION: Hepatosplenomegaly. No acute abnormalities. Electronically Signed: Nick Wills MD at 18:47 EDT , Discharge Plan Triage Chief Complaint: Chest Other ED Provider: Mina Cuevas Dx/Rx/DC Orders Clinical Impression: Contusion of ribs, Hepatosplenomegaly, Contusion of abdominal wall, initial encounter Instructions: Anatomy of the Digestive System, ED Bruise, Rib Prescriptions: New hydrocodone-acetaminophen [hydrocodone-acetaminophen] 5-325 mg tablet 1 tab PO Q6H PRN PRN (Reason: Pain) 3 Days Qty: 10 0RF No Action sertraline 100 mg tablet 100 mg PO DAILY omeprazole 20 mg capsule,delayed release(DR/EC) 20 mg PO DAILY zolpidem 5 mg tablet 5 mg PO QHS PRN (Reason: Sleep) alprazolam [Xanax] 0.5 mg tablet 0.5 mg PO BID PRN (Reason: Anxiety) dexamethasone [Decadron] 6 mg tablet 6 mg PO DAILY Qty: 7 0RF Primary Care Provider: Murtaza Hodge Referrals: Murtaza Hodge DO [Primary Care Provider] - As Needed Disposition Disposition: Home, Self Care
[2023-03-05 18:48] LABS: Anion Gap 6 (5-15); BUN 15 mg/dL (7-18); BUN/Creat Ratio 15.4 RATIO (10-20); Calcium,Total 8.9 mg/dL (8.5-10.1); Chloride 103 mmol/L (98-107); Creatinine, Serum 0.98 mg/dL (0.70-1.30); EST Glomerular Filtration Rate 89 mL/min (>60); Est Glom Filt Rate - Afr Amer 107 mL/min (>60); Estimated Creatinine Clearance 89.93 ml/min; Glucose 120 mg/dL (74-106); Potassium 3.7 mmol/L (3.5-5.1); Sodium Level 135 mmol/L (136-145)
== END 2023-03-05 20:04 | disposition home or self-care (01) ==
PROVIDERS: Emergency Provider Emergency Medicine; PCP Family Medicine; Visit Provider Emergency Medicine
DX: S30.1XXA Contusion of abdominal wall, initial encounter (principal); S20.219A Contusion of unspecified front wall of thorax, initial encounter; R16.2 Hepatomegaly with splenomegaly, not elsewhere classified; F41.9 Anxiety disorder, unspecified; K21.9 Gastro-esophageal reflux disease without esophagitis; Z79.899 Other long term (current) drug therapy; Z90.49 Acquired absence of other specified parts of digestive tract; W19.XXXA Unspecified fall, initial encounter
CPT/HCPCS: 71046; 74177; 80048; 85025; 99284; Q9967; A4216

== ENCOUNTER → 2023-11-23 | Outpatient (CLI) | payer OTHER, SELFPAY ==
[2023-11-23 17:04] LABS: Erythrocyte Sedimentation Rate 3 mm/hr (0-20)
[2023-11-23 18:13] LABS: ALB/GLOB Ratio 1.5 RATIO (0.9-2.4); AST(SGOT) 24 U/L (15-37); Alanine Aminotransfer ALT/SGPT 40 U/L (16-61); Albumin, Serum 4.8 g/dL (3.2-5.0); Alkaline Phosphatase 77 U/L (45-117); Anion Gap 10 (5-15); BUN 8 mg/dL (7-18); BUN/Creat Ratio 9.6 RATIO (10-20); CRP < 2.90 mg/L (0.0-3.0); Calcium,Total 9.2 mg/dL (8.5-10.1); Chloride 103 mmol/L (98-107); Creatinine, Serum 0.83 mg/dL (0.70-1.30); EST Glomerular Filtration Rate 106 mL/min (>60); Est Glom Filt Rate - Afr Amer 128 mL/min (>60); Globulin 3.1 g/dL (2.2-4.2); Glucose 80 mg/dL (74-106); Potassium 3.9 mmol/L (3.5-5.1); Protein, Total 7.9 g/dL (6.4-8.2); Rheumatoid Factor < 10.0 IU/mL (<15); Sodium Level 135 mmol/L (136-145); Uric Acid 6.8 mg/dL (3.5-7.2)
[2023-11-25 16:08] LABS: CCP IgG Antibodies 6 units (0-19)
[2023-11-28 15:08] LABS: Anti-Nuclear Antibody Test Negative (.)
== END | disposition home or self-care (01) ==
LOC: BFHLAB 15:01
PROVIDERS: PCP Family Medicine; Referring Provider Family Medicine; Visit Provider Family Medicine
DX: M25.561 Pain in right knee (principal); R16.2 Hepatomegaly with splenomegaly, not elsewhere classified; M25.461 Effusion, right knee
CPT/HCPCS: 36415; 80053; 84550; 85652; 86038; 86140; 86200; 86431

== ENCOUNTER → 2023-12-15 | Outpatient (CLI) | payer OTHER, SELFPAY ==
--- NOTE | 2023-12-15 16:29 | MRI_ITS ---
STUDY: MRI RIGHT KNEE REASON FOR EXAM: Male, 42 years old. painful R knee [id number] w/o injury TECHNIQUE: Standardized fat and water weighted pulse sequences were obtained in all 3 orthogonal planes. COMPARISON: None. FINDINGS: Normal medial meniscus. There is diffuse, less than 50% thickness articular cartilage loss of the medial femorotibial compartment. Normal medial femoral condyle and tibial plateau. Normal medial collateral ligamentous complex (MCL). Normal distal semimembranosus, gracilis and semitendinosus tendons. Normal lateral meniscus. There is diffuse, less than 50% thickness articular cartilage loss of the lateral femorotibial compartment. Normal lateral femoral condyle and tibial plateau. Normal proximal tibiofibular articulation. Normal lateral collateral (fibular) ligament. Normal popliteus tendon. Normal biceps femoris tendon. Normal anterior cruciate ligament (ACL). Normal posterior cruciate ligament (PCL). Normal congruent patellofemoral articulation. Moderate fissuring and thinning is present in the medial patellar facet cartilage and the outer one third region, see image 06/08 series 2. Normal remaining patellofemoral cartilage. Normal medial and lateral patellar retinaculum. Normal quadriceps tendon. Normal patellar tendon. Normal Hoffa''s fat pad. There is a small volume joint effusion. The medial patellar plicae is moderately thickened and elongated extending at the periphery of the medial patellofemoral articulation where it appears to be impinged. Moderate synovial proliferation and thickening is present compatible with synovitis throughout the joint lining. No marrow edema or fracture or osteochondral defect is present. The soft tissues are unremarkable. The otherwise visualized osseous structures are unremarkable. MRI/Lower Ext Joint Only (Routine) IMPRESSION: 1. The medial patellar plicae is moderately thickened and elongated extending at the periphery of the medial patellofemoral articulation where it appears to be impinged. Moderate synovial proliferation and thickening is present compatible with synovitis throughout the joint lining. No marrow edema or fracture or osteochondral defect is present. Electronically Signed: Nathaniel Perez MD at 16:12 EDT ,
== END | disposition home or self-care (01) ==
PROVIDERS: PCP Family Medicine; Referring Provider Family Medicine; Visit Provider Family Medicine
DX: M25.561 Pain in right knee (principal); M25.461 Effusion, right knee
CPT/HCPCS: 73721

== ENCOUNTER 2023-12-26 12:26 | Outpatient (CLI) | payer OTHER, SELFPAY ==
[2023-12-26 13:56] LABS: Synovial Fld Mononuclear WBC # 0.058 10^3/ul; Synovial Fld Mononuclear WBC % 93.6 %; Synovial Fld Polynuclear WBC # 0.004 10^3/uL; Synovial Fld Polynuclear WBC % 6.4 %
[2023-12-26 14:41] LABS: AUTO B FLUID DILUENT BKGD CT WBC <0.1 RBC <0.01 (W<.1,R<.01); Source / Synovial Fluid RIGHT KNEE; Source- Body Fluid SYNOVIAL
[2023-12-26 14:42] LABS: Appearance /Synovial Fluid Clear (CLEAR); Color / Synovial Fluid Yellow (Pale Yellow)
[2023-12-26 15:00] LABS: RBC /Synovial Fluid 390 /mm3 (0)
[2023-12-26 15:06] LABS: CRYSTALS, BODY FLUID NO CRYSTALS SEEN
[2023-12-26 15:31] LABS: Lymph 2 %; Monocyte /Synovial Fluid 82 %; Neutrophil 3 % (0-25); Other Cell /Synovial Fluid 13 %
[2023-12-26 15:32] LABS: Pathologist Review Will follow
[2023-12-27 14:00] LABS: Pathologist Comment Reviewed
== END 2023-12-26 23:59 | disposition home or self-care (01) ==
PROVIDERS: PCP Family Medicine; Referring Provider Orthopaedic Surgery; Visit Provider Orthopaedic Surgery
DX: M25.461 Effusion, right knee (principal)
CPT/HCPCS: 87070; 87075; 87205; 89050; 89051; 89060

== ENCOUNTER 2024-06-22 18:55 | Emergency (ER) | payer OTHER, SELFPAY ==
[2024-06-22] VITALS (12 sets, daily range): BP systolic 121–161; BP diastolic 93–118; PULSE 96–108; RESP 15–29; TEMP 36.8–37.9; O2SAT 97–100; BMI 40.7
--- NOTE | 2024-06-22 19:18 | RAD_ITS ---
INDICATION: cough, pain EXAMINATION/TECHNIQUE: X-RAY - XR Ribs Unilateral W/ PA Chest Min 3 Views COMPARISON: FINDINGS: SOFT TISSUES: No soft tissue swelling or gas. BONES: No displaced fracture. No sclerotic or destructive changes observed. VISUALIZED LUNGS: Clear. No pneumothorax. RAD/Ribs Uni Min 3V w/PA Chest IMPRESSION: No evidence of displaced rib fracture. Electronically Signed: Izzy Galarza MD at 20:10 EST Reading Location ID and State: [id number] / Tel , Service support ,
--- NOTE | 2024-06-22 19:18 | EX.ED.VIS.UR ---
HPI HPI - URI History of Present Illness Chief Complaint: Chest Other Informant: patient Narrative Narrative: 43-year-old male healthy has had cough, runny nose, congestion for the past week. As of recently started having some subjective fevers and bodyaches and today within the last couple hours gradually started having pain in the right rib cage more lateral and posterior. Hurts to breathe and to move especially with cough. Did not start suddenly severe. Denies dyspnea. Coughing up sputum no blood. No direct injury. Took ibuprofen and meloxicam earlier. No recent leg/calf pain or swelling he did recent have laparoscopic knee surgery. He has not been immobilized. No history of venous thromboembolic disease. ROS ROS ED Constitutional Constitutional ED: Reports body ache(s), fever(s) and subjective; Denies chills ENT ENT ED: Reports nasal congestion and rhinorrhea; Denies ear pain or sore throat Cardiovascular Cardiovascular: Reports chest pain; Denies palpitations Respiratory/Chest Respiratory/Chest: Reports cough and sputum; Denies dyspnea Gastrointestinal Gastrointestinal: Denies abdominal pain, diarrhea, nausea or vomiting Genitourinary Genitourinary ED: Denies dysuria or hematuria Musculoskeletal Musculoskeletal: Denies myalgias or neck pain Integumentary Denies abscess or rash Neurologic Neurologic: Denies headache(s), paresthesias or weakness Psychiatric Psychiatric: Denies depression or suicidal thoughts Endocrine Endocrinology: Denies polydipsia or polyuria [facility] Medical History (Updated 06/22/24 @ 21:[address] Dev Lua MD) GERD (gastroesophageal reflux disease) Anxiety Home Medications ?Medication ?Instructions ?Recorded ?Last Taken ?Type omeprazole 20 mg capsule,delayed 20 mg PO DAILY 09/06/19 09/16/19 06:00 History release sertraline 100 mg tablet 100 mg PO DAILY 09/06/19 Unknown History alprazolam 1 mg tablet 0.5 - 1 mg PO DAILY PRN anxiety 06/22/24 Unknown History clobetasol 0.05 % scalp solution 1 applic topical DAILY PRN rash 06/22/24 Unknown History dextroamphetamine-amphetamine ER 2 cap PO DAILY PRN to focus 06/22/24 Unknown History 20 mg 24hr capsule,extend release dicyclomine 20 mg tablet 20 mg PO 4X/DAY PRN PRN abdominal 06/22/24 Unknown History pain hydrocodone-acetaminophen 5-325mg 1 tab PO Q6H PRN PRN Pain 3 days 06/22/24 Unknown Rx 5mg-325mg #10 TABLETS ibuprofen 800 mg tablet 800 mg PO TID PRN PRN pain 06/22/24 Unknown History meloxicam 15 mg tablet 15 mg PO DAILY 06/22/24 Unknown History meloxicam 15 mg tablet 15 mg PO DAILY PRN pain #20 tabs 06/22/24 Unknown Rx naproxen 500 mg tablet 500 mg PO BID PRN PRN pain 06/22/24 Unknown History ondansetron HCl 4 mg tablet 4 mg PO Q8 nausea 06/22/24 Unknown History tadalafil 20 mg tablet 20 mg PO Q3D PRN sexual activity 06/22/24 Unknown History zolpidem 10 mg tablet 10 mg PO DAILY PRN sleep 06/22/24 Unknown History Allergy/AdvReac Type Severity Reaction Status Date / Time prochlorperazine (From Allergy Other Verified 06/22/24 18:59 Compazine) Family History Mother Bleeding disorder Diabetes Surgical History S/P appendectomy Social History Smoking Status: Never smoker alcohol intake: never EXAM Physical Exam Const Vital Signs: 06/22/24 18:56 06/22/24 18:58 06/22/24 19:07 Temperature 98.2 F 98.2 F Temperature Source Temporal Temporal Pulse Rate 96 96 Respiratory Rate 15 15 Respiratory Effort Short of Breath Blood Pressure 160/97 H 160/97 H Blood Pressure Mean 118 118 Pulse Ox 99 100 Oxygen Delivery Method Room Air Room Air 06/22/24 19:58 06/22/24 19:59 06/22/24 21:00 Temperature 99.1 F 100.2 F H Temperature Source Oral Oral Pulse Rate 108 H 106 H Respiratory Rate 20 H 16 Respiratory Effort Blood Pressure 147/99 H 151/100 H Blood Pressure Mean 115 117 Pulse Ox 97 99 Oxygen Delivery Method Room Air Room Air Room Air Positive well nourished and well developed General Appearance ED: well developed and NAD HEENT Reports moist mucous membranes normocephalic and atraumatic Face and Sinus: Negative for sinus tenderness Throat: posterior oropharynx normal Eyes PERRL and EOMs intact bilaterally Eyes Narrative: Normal conjunctiva Neck no lymphadenopathy, supple and no meningeal signs Chest Wall Chest Narrative: Tender throughout right mid lateral and lower posterior rib cage no crepitus, subcutaneous emphysema, step-off. No splinting with deep aspiration but patient is in pain to breathe deeply and to move around. No rash. Resp normal respiratory effort and clear to auscultation bilaterally Cardio no murmurs Rate: regular rate; Negative for tachycardic Rhythm: regular rhythm GI non-tender and non-distended GI Narrative: Abdomen benign no right upper quadrant tenderness Auscultation: normoactive bowel sounds Palpation: soft Back/Spine no CVA tenderness and normal ROM Extremity normal to inspection and full ROM Extremity Narrative: No calf tenderness. No edema. Neuro oriented x3, CN's II-XII intact bilaterally and no sensory deficits noted Sensorium / Orientation: alert Motor Exam: strength 5/5 throughout Psych mental status grossly normal Skin Lesions: no lesions Rashes: no rashes MDM MDM MDM Narrative Medical decision making narrative: All of this patient's pain is reproducible with palpation and with movement, and in addition his PERC score is 0. Therefore I do not think he needs to be worked up for pulmonary embolus. He was given something for pain while we obtained a 4 view x-ray series of the right rib cage including PA chest, on my interpretation these are negative for acute rib abnormality or pneumonia. Radiology in agreement. When I went to talk with the patient and see how the tramadol was helping, he is tachypneic, holding his chest, saying that the discomfort now feels like crushing heaviness in his chest. Therefore obtained an EKG, which is normal on my interpretation, I gave him some morphine and Zofran, and obtained a workup to rule out PE and acute coronary syndrome. D-dimer and troponin both normal and the rest of his blood counts/testing is unremarkable except for a mild leukocytosis which is nonspecific. He did develop a low-grade temperature which then I treated with Tylenol which helped. I do have some reproducible pain on the right, suggesting musculoskeletal etiology, there could also be a pleurisy component here. Regardless supportive care is advised I see nothing for antibiotics to be indicated for, he does not have any ST segment deviations or elevated troponin to suggest myocarditis and there is no CT abnormalities or ST segment deviations to suggest pericarditis here. He is asking for refill for his meloxicam which is fine with me as well as a short course of some [place] which may help with his pain and cough. Follow-up advised. Lab Data Attestation: I reviewed the patient's lab results. Labs: Laboratory Results - last 24 hr 06/22/24 20:16 WBC 12.2 H RBC 5.35 Hgb 14.6 Hct 42.9 MCV 80.2 MCH 27.3 MCHC 34.0 RDW Std Deviation 36.0 RDW Coeff of Dea 12.4 Plt Count 272 MPV 9.1 Immature Gran % (Auto) 1.100 H Neut % (Auto) 74.7 H Lymph % (Auto) 15.3 L [place] % (Auto) 6.1 Eos % (Auto) 2.1 Baso % (Auto) 0.7 Absolute Neuts (auto) 9.1 H Absolute Lymphs (auto) 1.87 Nucleated RBC % 0 D-Dimer Quant (PE/DVT) 0.27 Sodium 135 L Potassium 4.2 Chloride 102 Carbon Dioxide 26.0 Anion Gap 7 BUN 12 Creatinine 0.95 Estim Creat Clear Calc 120.60 Est GFR (MDRD) Af Amer 111 Est GFR (MDRD) Non-Af 91 BUN/Creatinine Ratio 12.7 Glucose 99 Calcium 9.1 Troponin I High Sens < 3 L Radiography Diagnostic Testing: Clinical Impression(s) from Imaging Studies Ribs w/Chest X-Ray 06/22/24 19:18 IMPRESSION: No evidence of displaced rib fracture. Electronically Signed: Izzy Galarza MD at 20:10 EST Reading Location ID and State: [id number] / Tel , Service support , Rhythm Strip Rhythm Strip: Sinus Rhythm Rate: 95 Ectopy: None EKG Initial EKG: Attestation: I personally reviewed and interpreted this EKG as follows: Interpretation: No Acute Injury Pattern and Sinus Tachycardia Comments: Nml axis & intervals; nml EKG Discharge Plan Triage Chief Complaint: Chest Other ED Provider: Dev Lua Dx/Rx/DC Orders Clinical Impression: Acute viral syndrome, Pleurisy, Intercostal muscle strain Instructions: ED Strain Chest Wall, ED Pleurisy, ED Viral Syndrome (Adult) Prescriptions: New hydrocodone-acetaminophen 5-325 mg tablet 1 tab PO Q6H PRN PRN (Reason: Pain) 3 Days Qty: 10 0RF meloxicam 15 mg tablet 15 mg PO DAILY PRN (Reason: pain) Qty: 20 0RF No Action sertraline 100 mg tablet 100 mg PO DAILY omeprazole 20 mg capsule,delayed release(DR/EC) 20 mg PO DAILY alprazolam 1 mg tablet 0.5 - 1 mg PO DAILY PRN (Reason: anxiety) clobetasol 0.05 % solution 1 applic topical DAILY PRN (Reason: rash) dextroamphetamine-amphetamine 20 mg capsule,extended release 24hr 2 cap PO DAILY PRN (Reason: to focus) dicyclomine 20 mg tablet 20 mg PO 4X/DAY PRN PRN (Reason: abdominal pain) ibuprofen 800 mg tablet 800 mg PO TID PRN PRN (Reason: pain) Patient Comments: takes daily for knee pain meloxicam 15 mg tablet 15 mg PO DAILY naproxen 500 mg tablet 500 mg PO BID PRN PRN (Reason: pain) ondansetron HCl 4 mg tablet 4 mg PO Q8 zolpidem 10 mg tablet 10 mg PO DAILY PRN (Reason: sleep) tadalafil 20 mg tablet 20 mg PO Q3D PRN (Reason: sexual activity) Primary Care Provider: Murtaza Hodge Referrals: Murtaza Hodge DO [Primary Care Provider] - 3-5 Days Print Language: Tristanian Disposition Disposition: Home, Self Care
[2024-06-22] MEDS: traMADol 50 MG Tablet PO (19:38)
--- NOTE | 2024-06-22 19:59 | EKG12_ITS ---
Test Reason : DYSRHYTHMIA Blood Pressure : */* mmHG Vent. Rate : 105 BPM Atrial Rate : 105 BPM P-R Int : 130 ms QRS Dur : 68 ms QT Int : 322 ms P-R-T Axes : 19 17 36 degrees QTcB Int : 425 ms Sinus tachycardia Otherwise normal ECG Confirmed by PAM VILLA, BONNIE ([id number]), online editor SHWETHA RAM ([id number]) on 06/26/2024 1:39:22 P M Referred By: BB Confirmed By: BONNIE OROZCO MD
[2024-06-22] MEDS: Morphine 4 MG/ML Syringe IV (20:21)
[2024-06-22] MEDS: Ondansetron 4 MG/2 ML Vial IV (20:21)
[2024-06-22 20:22] LABS: Absolute Lymphocyte Count 1.87 X10^3/uL (0.83-4.51); Absolute Neutrophil Count 9.1 X10^3/uL (2.0-7.7); Basophil# 0.08 X10^3/uL; Basophil% 0.7 % (0-1); Eosinophil# 0.26 X10^3/uL; Eosinophils% 2.1 % (0-5); Hematocrit 42.9 % (40-54); Hemoglobin 14.6 g/dL (13.0-16.5); Lymphocyte # 1.87 X10^3/ul (0.83-4.51); Lymphocyte % 15.3 % (19-41); Mean Corpuscular Hgb 27.3 pg (27.0-32.0); Mean Corpuscular Volume 80.2 fL (80-94); Mean Platelet Vol. 9.1 fl (6.2-12.0); Monocyte# 0.74 X10^3/uL; Monocyte% 6.1 % (0-10); NRBC Flagged by Analyzer 0 % (0-5); Neutrophil # 9.13 X10^3/uL (2.7-7.7); Neutrophil % 74.7 % (47-70); Platelet Count 272 K/mm3 (150-450); RBC Distribution Width CV 12.4 % (11.6-14.6); Red Blood Count 5.35 M/mm3 (4.6-6.2); White Blood Count 12.2 K/mm3 (4.4-11.0)
[2024-06-22 20:41] LABS: Anion Gap 7 (5-15); BUN 12 mg/dL (7-18); BUN/Creat Ratio 12.7 RATIO (10-20); Calcium,Total 9.1 mg/dL (8.5-10.1); Chloride 102 mmol/L (98-107); Creatinine, Serum 0.95 mg/dL (0.70-1.30); EST Glomerular Filtration Rate 91 mL/min (>60); Est Glom Filt Rate - Afr Amer 111 mL/min (>60); Glucose 99 mg/dL (74-106); Potassium 4.2 mmol/L (3.5-5.1); Sodium Level 135 mmol/L (136-145); Troponin-I HS (w/2H Reflex) < 3 pg/mL (3.0-78.0)
[2024-06-22 20:55] LABS: D-Dimer Quantitative (DVT/PE) 0.27 FEU/ug/m (0.27-0.49)
[2024-06-22] MEDS: Acetaminophen 500 MG Tablet 1000 MG PO (21:31)
[2024-06-22 22:20] LABS: Reflex Troponin-HS? (from REC) Y
[2024-06-22 22:28] LABS: AST(SGOT) 16 U/L (15-37); Alanine Aminotransfer ALT/SGPT 24 U/L (16-61); Albumin, Serum 3.9 g/dL (3.2-5.0); Alkaline Phosphatase 91 U/L (45-117); Bilirubin, Direct 0.11 mg/dL (0.00-0.30); Globulin 3.7 g/dL (2.2-4.2); Lipase 27 U/L (13-75); Protein, Total 7.6 g/dL (6.4-8.2)
== END 2024-06-22 22:45 | disposition home or self-care (01) ==
PROVIDERS: Emergency Provider Emergency Medicine; PCP Family Medicine; Visit Provider Emergency Medicine
DX: B34.9 Viral infection, unspecified (principal); S29.011A Strain of muscle and tendon of front wall of thorax, initial encounter; R09.1 Pleurisy; R10.11 Right upper quadrant pain; F41.9 Anxiety disorder, unspecified; Z79.899 Other long term (current) drug therapy; Z90.49 Acquired absence of other specified parts of digestive tract
CPT/HCPCS: 71101; 80048; 80076; 83690; 84484; 85025; 85379; 93005; 96374; 96375; 99285; A4216; J2405

== ENCOUNTER → 2024-06-28 | Outpatient (CLI) | payer OTHER, SELFPAY ==
--- NOTE | 2024-06-28 12:42 | RAD_ITS ---
INDICATION: RULE OUT PNEUMONIA EXAMINATION/TECHNIQUE: X-RAY - XR Chest 2 Views COMPARISON: Prior study dated: 06/22/2024 FINDINGS: LINES/DEVICES: None. LUNGS: Compressive atelectatic changes in the right lower lung. Small right pleural effusion. MEDIASTINUM AND CARDIOVASCULAR STRUCTURES: Cardiac silhouette not enlarged. Central airways and mediastinal contour are unremarkable. BONES AND SOFT TISSUES: Unremarkable. RAD/Chest PA and Lateral IMPRESSION: Atelectatic changes in the right lower lung and small right pleural effusion. Electronically Signed: Delbert Vera MD at 13:50 EST ,
== END | disposition home or self-care (01) ==
LOC: MTRAD 12:40
PROVIDERS: PCP Family Medicine; Referring Provider Nurse Practitioner Family; Visit Provider Nurse Practitioner Family
DX: R05.9 Cough, unspecified (principal)
CPT/HCPCS: 71046

== ENCOUNTER 2024-06-30 08:23 | Emergency (ER) | payer OTHER, SELFPAY ==
[2024-06-30] VITALS (12 sets, daily range): BP systolic 108–132; BP diastolic 69–87; PULSE 83–115; RESP 16–28; TEMP 36.6–38.2; O2SAT 93–100; BMI 39.9
--- NOTE | 2024-06-30 08:35 | ED.RN ---
PT HAS BEEN SICK FOR A FEW WEEKS AND WAS SEEN HERE IN THE ED FOR THIS PRIOR TO TODAY'S VISIT. PT HAD A RECENT X-RAY HERE THEY MENTIONED CONCERN WITH ATELECTASIS AND HE IS ON A ZPACK CURRENTLY, DAY 2. PT HAS TACHYCARDIA AND TACHYPNEA. AT THE BEDSIDE AND VERY CONCERNED WITH HIS ILLNESS AND BEHAVIOR
--- NOTE | 2024-06-30 08:40 | ED.VIS.DYS ---
HPI History of Present Illness Chief Complaint: Shortness of Breath Informant: patient Onset/Context/Timing Onset: Weeks (1) Context: gradual Timing: Continuous Worsened by: - (Eating, drinking) Relieved by: Nothing Associated Symptoms cough, fever and green sputum; Negative for rhinorrhea, post nasal drip, ear pain, sore throat, chills, sweats, clear sputum, white sputum or yellow sputum Chest Pain: Positive for [place] Narrative Narrative: Patient presents with shortness of breath that has been getting worse over the past week. Patient states it is gradually getting worse. Patient states he was seen here 1 week ago and had a chest x-ray which was negative and D-dimer which was negative. Patient states that he was prescribed prednisone and was diagnosed with pleurisy. Patient states he has been taking the prednisone with no improvement. Patient states he followed up with his primary care physician who did an outpatient x-ray which showed atelectasis and a pleural effusion. Patient states he was prescribed Zithromax at that time. Patient states that he still feels short of breath. Patient states it is worse with any eating or drinking. Patient states he is coughing up some green and brown sputum. Patient admits to a fever of 102.6. Patient states his pain radiates into his abdomen. Patient denies any nausea or vomiting. [facility] Medical History (Updated 06/30/24 @ 12:[address] Tomás Whitaker, DO) GERD (gastroesophageal reflux disease) Anxiety Home Medications ?Medication ?Instructions ?Recorded ?Last Taken ?Type omeprazole 20 mg capsule,delayed 20 mg PO DAILY 09/06/19 06/29/24 History release sertraline 100 mg tablet 100 mg PO DAILY 09/06/19 06/29/24 History alprazolam 1 mg tablet 0.5 - 1 mg PO DAILY PRN anxiety 06/22/24 Unknown History clobetasol 0.05 % scalp solution 1 applic topical DAILY PRN rash 06/22/24 Unknown History dextroamphetamine-amphetamine ER 2 cap PO DAILY PRN to focus 06/22/24 Unknown History 20 mg 24hr capsule,extend release dicyclomine 20 mg tablet 20 mg PO 4X/DAY PRN PRN abdominal 06/22/24 Unknown History pain hydrocodone-acetaminophen 5-325mg 1 tab PO Q6H PRN PRN Pain 3 days 06/22/24 Unknown Rx 5mg-325mg #10 TABLETS ibuprofen 800 mg tablet 800 mg PO TID PRN PRN pain 06/22/24 Unknown History meloxicam 15 mg tablet 15 mg PO DAILY 06/22/24 Unknown History meloxicam 15 mg tablet 15 mg PO DAILY PRN pain #20 tabs 06/22/24 Unknown Rx naproxen 500 mg tablet 500 mg PO BID PRN PRN pain 06/22/24 Unknown History ondansetron HCl 4 mg tablet 4 mg PO Q8 nausea 06/22/24 Unknown History tadalafil 20 mg tablet 20 mg PO Q3D PRN sexual activity 06/22/24 Unknown History zolpidem 10 mg tablet 10 mg PO DAILY PRN sleep 06/22/24 Unknown History hydrocodone-acetaminophen 5-325mg 1 tab PO Q6H PRN PRN Pain 3 days 06/30/24 Unknown Rx 5mg-325mg #10 TABLETS levofloxacin 750 mg tablet 750 mg PO DAILY #10 tabs 06/30/24 Unknown Rx Allergy/AdvReac Type Severity Reaction Status Date / Time prochlorperazine (From Allergy Other Verified 06/22/24 18:59 Compazine) Family History Mother Bleeding disorder Diabetes Surgical History (Updated 06/30/24 @ 08:[address] Tomás Whitaker DO) Hx of arthroscopic knee surgery History of herniorrhaphy S/P appendectomy Social History Smoking Status: Never smoker alcohol intake: never ROS ROS ED Constitutional Constitutional ED: Reports fever(s); Denies chills Eyes Eyes: Reports blurry vision ENT ENT ED: Denies rhinorrhea or sore throat Cardiovascular Cardiovascular: Reports chest pain; Denies palpitations Respiratory/Chest Respiratory/Chest: Reports cough and dyspnea Gastrointestinal Gastrointestinal: Reports abdominal pain; Denies nausea or vomiting Genitourinary Genitourinary ED: Denies dysuria or hematuria Musculoskeletal Musculoskeletal: Reports back pain; Denies neck pain Integumentary Denies abscess or rash Neurologic Neurologic: Denies headache(s) or weakness Allergic/Immunologic Allergic/Immunologic ED: Denies mouth swelling or urticaria EXAM Physical Exam Const Vital Signs: 06/30/24 08:24 06/30/24 08:26 06/30/24 08:32 Temperature 97.8 F 97.8 F Temperature Source Temporal Oral Pulse Rate 115 H 106 H Respiratory Rate 28 H 20 H Respiratory Effort Labored Respiratory Depth Shallow Respiratory Pattern Tachypnea Blood Pressure 132/82 H 130/77 H Blood Pressure Mean 98 94 Pulse Ox 97 94 Oxygen Delivery Method Room Air Room Air Room Air 06/30/24 09:02 06/30/24 09:23 06/30/24 09:26 Temperature 100.3 F H Temperature Source Oral Pulse Rate 95 95 Respiratory Rate 22 H 22 H Respiratory Effort Respiratory Depth Respiratory Pattern Blood Pressure 120/72 120/72 Blood Pressure Mean 88 88 Pulse Ox 93 94 94 Oxygen Delivery Method Room Air Room Air Room Air 06/30/24 10:00 06/30/24 11:00 06/30/24 12:00 Temperature 100.8 F H 98.7 F 97.8 F Temperature Source Oral Oral Oral Pulse Rate 96 88 83 Respiratory Rate 26 H 24 H 16 Respiratory Effort Respiratory Depth Respiratory Pattern Blood Pressure 114/71 108/69 112/87 H Blood Pressure Mean 85 82 95 Pulse Ox 93 94 100 Oxygen Delivery Method Room Air Room Air Room Air 06/30/24 12:44 Temperature 98.1 F Temperature Source Pulse Rate 83 Respiratory Rate 18 Respiratory Effort Respiratory Depth Respiratory Pattern Blood Pressure 112/87 H Blood Pressure Mean 95 Pulse Ox 100 Oxygen Delivery Method Positive well nourished and well developed General Appearance ED: well developed and NAD HEENT Reports moist mucous membranes atraumatic Neck supple, no meningeal signs and no JVD Resp normal respiratory effort Auscultation: diminished lung sounds right lower Cardio regular rhythm Rate: tachycardic GI non-distended Palpation: soft and tender RLQ, RUQ and periumbilical Extremity normal to inspection General Extremety ED: Negative for edema or tenderness General Extremity: Negative for edema Neuro oriented x3, CN's II-XII intact bilaterally and no sensory deficits noted [place] Coma Scale: document GCS findings Spontaneous Obeys Commands Oriented 15 Sensorium / Orientation: alert Speech: speech normal Motor Exam: strength 5/5 throughout Psych mental status grossly normal MDM MDM MDM Narrative Medical decision making narrative: Differential diagnosis includes pneumonia, pneumothorax, pleural effusion, cardiac dysrhythmia, cardiac ischemia, cholecystitis, cholelithiasis, ureteral calculus, pyelonephritis, pulmonary embolism, and viral illness. EKG will be obtained to assess for cardiac dysrhythmia and cardiac ischemia. CT of the chest, abdomen, and pelvis will be obtained to assess for pneumonia, pneumothorax, pulmonary embolism, cholecystitis, cholelithiasis, pyelonephritis, and ureteral calculus. CBC will be obtained to assess for leukocytosis and anemia. Comprehensive metabolic profile will be obtained to assess for electrolyte abnormality, hepatic function, and renal function. High-sensitivity troponin will be obtained to assess for cardiac ischemia. Urinalysis will be obtained to assess for urinary tract infection and hematuria. Lab Data Attestation: I reviewed the patient's lab results. Lab results narrative: CBC was reviewed. There is a leukocytosis of 20.9. This is likely due to the prednisone. Platelets are mildly elevated at 506. Comprehensive metabolic profile was reviewed. AST was slightly elevated at 84, ALT was slightly elevated at 118, and alkaline phosphatase was mildly elevated at 126. The remainder was within normal limits. High-sensitivity troponin was reviewed and was normal at 3. Urinalysis was reviewed. There is no evidence of urinary tract infection or hematuria. Labs: Laboratory Results - last 24 hr 06/30/24 06/30/24 08:35 09:46 WBC 20.9 H RBC 5.07 Hgb 13.6 Hct 41.0 MCV 80.9 MCH 26.8 L MCHC 33.2 RDW Std Deviation 40.3 RDW Coeff of Dea 13.8 Plt Count 506 H MPV 9.0 Neut % (Auto) Not Reportable Absolute Neuts (auto) 15.5 H Absolute Lymphs (auto) 3.34 Total Counted 100 Neutrophils % (Manual) 74 H Lymphocytes % (Manual) 16 L Monocytes % (Manual) 3 Eosinophils % (Manual) 2 Metamyelocytes % 3 H Myelocytes % 2 H Diff Path Review May foll Atypical Lymphocytes 1+ Platelet Estimate MOD INC Plt Morphology Comment CLUMPED Polychromasia 1+ Anisocytosis 1+ Tear Drop Cells 1+ Sodium 136 Potassium 3.6 Chloride 101 Carbon Dioxide 25.0 Anion Gap 10 BUN 14 Creatinine 0.94 Estim Creat Clear Calc 120.51 Est GFR (MDRD) Af Amer 111 Est GFR (MDRD) Non-Af 92 BUN/Creatinine Ratio 14.9 Glucose 133 H Calcium 8.3 L Total Bilirubin 0.60 AST 84 H ALT 118 H Alkaline Phosphatase 126 H Troponin I High Sens 3 Total Protein 6.8 Albumin 2.6 L Globulin 4.2 Albumin/Globulin Ratio 0.6 L Urine Color Yellow Urine Clarity Clear Urine pH 6.5 Ur Specific [place] 1.005 Urine Protein 15 H Urine Glucose (UA) Normal Urine Ketones Negative Urine Occult Blood Negative Urine Nitrite Negative Urine Bilirubin Negative Urine Urobilinogen Normal Ur Leukocyte Esterase Negative Urine RBC 0 SEEN Urine WBC 0-5 SEEN Ur Squamous Epith Cells 0-5 SEEN Amorphous Sediment R Urine Bacteria 1+ Urine Mucus 0 SEEN Radiography Diagnostic Testing: Clinical Impression(s) from Imaging Studies Chest/Abdomen/Pelvis CTA 06/30/24 09:01 IMPRESSION: No thoracic or aortic aneurysm or dissection. Normal branching of the great vessels of the aorta, no evidence of stenosis. Large loculated right pleural effusion containing air bubbles suggesting likely inflammation, there is also associated consolidation which contains air and hyperdensity, underlying lesion needs to be excluded. Hepatomegaly with diffuse fatty infiltration of the liver, no discrete lesion Nondistended fluid-filled small and large bowel loops throughout the abdomen and pelvis consistent with diffuse enteritis. Scattered colonic diverticula, no CT evidence of acute diverticulitis. Electronically Signed: Celso Chaparro MD at 10:04 [facility] , CTA of the chest, abdomen, and pelvis was obtained. There is no pulmonary embolism or aortic dissection. There is a loculated right pleural effusion containing small air bubbles suggesting inflammation. There is also a right lower lobe consolidation. There is hepatomegaly with fatty infiltration of the liver. There are fluid-filled small and large bowel loops throughout the abdomen consistent with enteritis. This was interpreted by the radiologist and was also independently reviewed by myself. EKG Initial EKG: Attestation: I personally reviewed and interpreted this EKG as follows: Interpretation: No Acute Injury Pattern and Sinus Tachycardia (103) Comments: EKG was obtained. On my independent interpretation, it showed a sinus tachycardia with a rate of 103. AL interval, QRS interval, and QTc intervals were all normal. [place] was normal. There are no acute ST or T wave changes. Prior EKG tracings: available for review Prior: Unchanged (06/22/2024) Treatment and Re-Evaluation :: Patient was given IV fluids, Zofran, and morphine. Patient was resting comfortably on reevaluation. Patient is maintaining his oxygen saturation at 94%. Patient was given a dose of Rocephin and Zithromax IV here. Patient will be ambulated on room air with a pulse oximeter. Patient maintain oxygen saturation at 93% and above while ambulating. Patient has a PORT score of 55 and a CURB-65 score of 0. Because of this, patient does not meet criteria for inpatient admission. Patient was given a prescription for Levaquin and a prescription for [place]. Patient was instructed to follow-up with his primary care physician in 5 to 7 days. Patient was instructed to return if worse in any way. Patient understood and was agreeable with the plan. All questions were answered. Discharge Plan Triage Chief Complaint: Shortness of Breath ED Provider: Tomás Whitaker Dx/Rx/DC Orders Clinical Impression: Pneumonia, Pleural effusion Instructions: ED Pleural Effusion, ED Pneumonia (Adult) Prescriptions: New levofloxacin 750 mg tablet 750 mg PO DAILY Qty: 10 0RF hydrocodone-acetaminophen 5-325 mg tablet 1 tab PO Q6H PRN PRN (Reason: Pain) 3 Days Qty: 10 0RF No Action sertraline 100 mg tablet 100 mg PO DAILY omeprazole 20 mg capsule,delayed release(DR/EC) 20 mg PO DAILY alprazolam 1 mg tablet 0.5 - 1 mg PO DAILY PRN (Reason: anxiety) clobetasol 0.05 % solution 1 applic topical DAILY PRN (Reason: rash) dextroamphetamine-amphetamine 20 mg capsule,extended release 24hr 2 cap PO DAILY PRN (Reason: to focus) dicyclomine 20 mg tablet 20 mg PO 4X/DAY PRN PRN (Reason: abdominal pain) ibuprofen 800 mg tablet 800 mg PO TID PRN PRN (Reason: pain) Patient Comments: takes daily for knee pain meloxicam 15 mg tablet 15 mg PO DAILY naproxen 500 mg tablet 500 mg PO BID PRN PRN (Reason: pain) ondansetron HCl 4 mg tablet 4 mg PO Q8 zolpidem 10 mg tablet 10 mg PO DAILY PRN (Reason: sleep) tadalafil 20 mg tablet 20 mg PO Q3D PRN (Reason: sexual activity) hydrocodone-acetaminophen 5-325 mg tablet 1 tab PO Q6H PRN PRN (Reason: Pain) 3 Days Qty: 10 0RF meloxicam 15 mg tablet 15 mg PO DAILY PRN (Reason: pain) Qty: 20 0RF Primary Care Provider: Murtaza Hodge Referrals: Murtaza Hodge DO [Primary Care Provider] - 3-5 Days Print Language: Beninese Disposition Disposition: Home, Self Care
--- NOTE | 2024-06-30 09:01 | CT_ITS ---
INDICATION: Shortness of breath, abdominal pain EXAMINATION: CTA CHEST, ABDOMEN AND PELVIS WITH CONTRAST - TECHNIQUE: A CTA of the chest, abdomen, and pelvis is obtained with sagittal and coronal reconstructed MIP views. Three-dimensional surface rendered sequence of the thoracic and abdominal aorta was obtained. A radiation dose optimization technique was used for this scan. mL of Isovue-[id number]. Oral contrast: None. COMPARISON: None. FINDINGS: CT CHEST: THORACIC AORTA: No atheromatous disease, no aneurysmal changes or dissection. ABDOMINAL AORTA: No aneurysm or dissection. No significant atheromatous disease. The iliac arteries are unremarkable. There is likely chronic elevation of the right hemidiaphragm. LUNGS: There is a large loculated pleural effusion containing air suggesting there may be associated inflammation with associated consolidation. There is low-density changes within the consolidation and underlying mass lesion cannot be excluded. MEDIASTINUM: The thyroid gland is normal. No mediastinal or hilar adenopathy. HEART: Heart is normal size. No pericardial effusion. No CAD. CT ABDOMEN AND PELVIS: LIVER: There is diffusely enlarged with fatty infiltration, no discrete lesion. GALLBLADDER: The CBD is normal. Normal gallbladder. SPLEEN: Normal. PANCREAS: No masses or inflammation. ADRENAL GLANDS: Normal. KIDNEYS AND URETERS: The kidneys both enhance appropriately. There are normal size and shape. No hydronephrosis or nephrolithiasis. No renal masses or cysts. STOMACH: Normal. Nondistended fluid-filled small and large bowel loops throughout the abdomen and pelvis consistent with diffuse enteritis. There are a few scattered colonic diverticula without CT evidence of acute diverticulitis.. APPENDIX: Not visualized IVC: Normal. RETROPERITONEUM: No retroperitoneal lymphadenopathy. PELVIC STRUCTURES: Normal bladder. SOFT TISSUES ABDOMEN: The anterior abdominal wall is normal. SOFT TISSUE CHEST: The extrathoracic soft tissues are normal. BONES: No fractures or significant degenerative disease. CT/CTA Chst, Abd, Pel W and/or WO IMPRESSION: No thoracic or aortic aneurysm or dissection. Normal branching of the great vessels of the aorta, no evidence of stenosis. Large loculated right pleural effusion containing air bubbles suggesting likely inflammation, there is also associated consolidation which contains air and hyperdensity, underlying lesion needs to be excluded. Hepatomegaly with diffuse fatty infiltration of the liver, no discrete lesion Nondistended fluid-filled small and large bowel loops throughout the abdomen and pelvis consistent with diffuse enteritis. Scattered colonic diverticula, no CT evidence of acute diverticulitis. Electronically Signed: Celso Chaparro MD at 10:04 EST ,
--- NOTE | 2024-06-30 09:02 | EKG12_ITS ---
Test Reason : SOB Blood Pressure : */* mmHG Vent. Rate : 103 BPM Atrial Rate : 103 BPM P-R Int : 124 ms QRS Dur : 70 ms QT Int : 322 ms P-R-T Axes : 6 11 14 degrees QTcB Int : 421 ms Sinus tachycardia Otherwise normal ECG Confirmed by LEONOR VILLA, MENA ([id number]), magazine editor ONEYDA CHOW ([id number]) on 07/01/2024 8:23:01 AM Referred By: ROBBIN Confirmed By: MENA GALVEZ MD
[2024-06-30] MEDS: 0.9% Normal Saline (1000mL) 1,000 ML 1000 ML IV (09:12)
[2024-06-30] MEDS: Ondansetron 4 MG/2 ML Vial IV (09:12)
[2024-06-30] MEDS: Morphine 4 MG/ML Syringe IV (09:12)
[2024-06-30 09:29] LABS: ALB/GLOB Ratio 0.6 RATIO (0.9-2.4); AST(SGOT) 84 U/L (15-37); Alanine Aminotransfer ALT/SGPT 118 U/L (16-61); Albumin, Serum 2.6 g/dL (3.2-5.0); Alkaline Phosphatase 126 U/L (45-117); Anion Gap 10 (5-15); BUN 14 mg/dL (7-18); BUN/Creat Ratio 14.9 RATIO (10-20); Calcium,Total 8.3 mg/dL (8.5-10.1); Chloride 101 mmol/L (98-107); Creatinine, Serum 0.94 mg/dL (0.70-1.30); EST Glomerular Filtration Rate 92 mL/min (>60); Est Glom Filt Rate - Afr Amer 111 mL/min (>60); Estimated Creatinine Clearance 120.51 ml/min; Globulin 4.2 g/dL (2.2-4.2); Glucose 133 mg/dL (74-106); Potassium 3.6 mmol/L (3.5-5.1); Protein, Total 6.8 g/dL (6.4-8.2); Sodium Level 136 mmol/L (136-145); Troponin-I HS 3 pg/mL (3.0-78.0)
[2024-06-30 09:43] LABS: Hemoglobin 13.6 g/dL (13.0-16.5); Mean Corp Hgb Conc 33.2 g/dL (32-36); Mean Corpuscular Hgb 26.8 pg (27.0-32.0); Mean Corpuscular Volume 80.9 fL (80-94); POSITIVE COUNT YES; POSITIVE MORPHOLOGY YES; Platelet Count 506 K/mm3 (150-450); RBC Distribution Width CV 13.8 % (11.6-14.6); RBC Distribution Width SD 40.3 fl (35.1-43.9); Red Blood Count 5.07 M/mm3 (4.6-6.2); White Blood Count 20.9 K/mm3 (4.4-11.0)
[2024-06-30 09:48] LABS: Differential Indicated MANUAL DIFF
[2024-06-30 09:50] LABS: Mucous, Urine 0 SEEN /hpf (<or=2+); Red Blood Cells-Urine 0 SEEN /hpf (0-5)
[2024-06-30 09:57] LABS: Color, Urine Yellow (Yellow); Glucose, Dipstick Normal (Normal); Ketone-Dipstick Negative (Negative); Leukocyte Esterase-Dipstick Negative /ul (Negative); Nitrite-Dipstick Negative (Negative); Occult Blood-Urine Negative /ul (Negative); Protein-Dipstick 15 mg/dl (Negative); Specific Gravity, Urine 1.005 (1.002-1.030); Urine Bilirubin Dipstick Negative (Negative); Urine Clarity Clear (Clear); Urine Urobilinogen Normal (Normal); Urine pH 6.5 (5.0 - 8.0)
[2024-06-30 10:03] LABS: Bacteria 1+ /hpf (None Seen); Squamous Epithelial Cells - UA 0-5 SEEN /hpf (0-5); White Blood Cells 0-5 SEEN /hpf (0-5)
[2024-06-30 10:04] LABS: Amorphous Sediment R
[2024-06-30 10:33] LABS: Eosinophil 2 % (0-5); Lymphocyte 16 % (19-41); Metamyelocyte 3 % (0-1); Monocyte 3 % (0-10); Myelocyte 2 % (0-0); Neutrophil-Segmented 74 % (47-70); Total Cells Counted 100 (MANUAL DIFF)
[2024-06-30 10:34] LABS: Absolute Lymphocyte Count 3.34 X10^3/uL (0.83-4.51); Absolute Neutrophil Count 15.5 X10^3/uL (2.0-7.7)
[2024-06-30 10:36] LABS: Anisocytosis 1+; Atypical Lymphocyte 1+ %; Platelet Estimate MOD INC (ADEQ); Platelet Morphology CLUMPED; Polychromasia 1+; Tear Drop Cell 1+
[2024-06-30] MEDS: Ceftriaxone 2 GM in 0.9% Normal Saline (50mL MB+) 50 ML IV (11:07)
[2024-06-30] MEDS: Azithromycin 500 MG in 0.9% Normal Saline (250mL Bag) 250 ML 250 MG IV (11:28)
--- NOTE | 2024-06-30 12:44 | ED.RN ---
PT CAME TO ED WITH WITH C/O SOB. PT WAS STARTED ON MONITOR, IV ACCESS, AND EKG. DR NOBLES PLACED ORDER FOR CT, MEDS, AND LABS. PT HAS BEEN RESTING FOLLOWING PAIN MEDICATION. PT DESCRIBES HIS PAIN HAS BEEN BETTER AND HE HAS NEEDED SOME SLEEP AND REST. 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 SHE GOES ON TO ASK ABOUT HIS WBC AND SED WITH HIS BLOOD WORK. PT EVANGELINA SHE HAS NO IDEA WHAT THOSE ARE BUT THAT A NURSE FRIEND IS ASKING. I WENT ON TO GIVE PT EDUCATION OF WHAT A WBC COUNT IS, WHAT IS WNL, AND WHAT THE PTS WAS TODAY. PT WAS 20.9. I ADVISED THE PTS THAT WE EXPECT THIS TO BE ELEVATED HE HAS PNEUMONIA AND INFLAMMATION. PT WAS ADVISED DR NOBLES DID NOT ORDER A SED RATE IT WOULD INDICATE HIS INFLAMMATION THAT WE ARE AWARE OF. ALL QUESTIONS PT HAD WITH THIS NURSE I WOULD TAKE TO DR NOBLES AND RELAY THE INFORMATION BACK. DR NOBLES WENT OVER ALL THE SAME PT EDUCATION INFORMATION PRIOR TO THIS NURSE GOING OVER PT EDUCATION. PT PERFORMED WALKING PULSE OX AND PASSED WITH SPO2 BEING 94% AT START AND 92-95 WHILE COMPLETE. PT NEVER WENT BELOW 92%. PTS WAS PLEASANT BUT WAS FLOODED WITH QUESTION FROM FRIENDS AND FAMILY THAT LEFT HER WORRIED PT SHOULD BE ADMITTED THIS NURSE AND DR NOBLES ADVISED PT DID NOT MEET CRITERIA FOR ADMISSION.
[2024-06-30] MEDS: HYDROcodone Bitartrate/Apap 5/325 Tablet PO (12:54)
[2024-07-02 10:57] LABS: Pathologist Review Reviewed
== END 2024-06-30 13:52 | disposition home or self-care (01) ==
PROVIDERS: Emergency Provider Emergency Medicine; PCP Family Medicine; Visit Provider Emergency Medicine
DX: J18.9 Pneumonia, unspecified organism (principal); J90 Pleural effusion, not elsewhere classified; K21.9 Gastro-esophageal reflux disease without esophagitis; Z79.899 Other long term (current) drug therapy; F41.9 Anxiety disorder, unspecified; Z90.49 Acquired absence of other specified parts of digestive tract
CPT/HCPCS: 71275; 74174; 80053; 81001; 84484; 85025; 93005; 96361; 96365; 96368; 96375; 99284; Q9967; A4216; J0696; J2405

== ENCOUNTER → 2024-08-08 | Outpatient (CLI) | payer OTHER, SELFPAY ==
--- NOTE | 2024-08-08 19:14 | CT_ITS ---
PROCEDURE: CHEST WITHOUT CONTRAST REASON FOR EXAM: Follow-up right pleural effusion. TECHNIQUE: Contiguous axial scans of 2.5 mm slice thicknesses without intravenous contrast. Sagittal and coronal reconstruction images were also obtained. COMPARISON: CTA chest dated 06/30/2024. FINDINGS: Hardware: None. Lymph nodes: No mediastinal hilar or axillary lymphadenopathy. Heart and Vasculature: Normal heart size. No pericardial effusion. Thoracic aorta and pulmonary arteries have normal contours. No coronary artery calcifications. Lungs and Airways: Loculated fluid collection in the right lung with pockets of air is redemonstrated, smaller. Adjacent right lower lobe consolidation with air bronchograms. Pleura:. No pneumothorax. Upper Abdomen: Hepatomegaly. Marked elevation of the right hemidiaphragm. Bones: Bone windows are unremarkable. CT/Chest without Contrast IMPRESSION: 1. Decrease size of the right loculated fluid collection since the previous st udy. Pockets of air persist within the fluid collection. 2. Adjacent right lower lobe parenchymal consolidation with air bronchograms, pneumonia versus compressive atelectasis. 3. No other significant changes have occurred since the previous study. One or more dose reduction techniques were used (e.g., Automated exposure contr ol, adjustment of the mA and/or kV according to patient size, use of iterative reconstruction technique). Reading Location: [facility]
== END | disposition home or self-care (01) ==
PROVIDERS: PCP Family Medicine; Referring Provider Family Medicine; Visit Provider Family Medicine
DX: J90 Pleural effusion, not elsewhere classified (principal); J18.9 Pneumonia, unspecified organism
CPT/HCPCS: 71250

== ENCOUNTER 2024-08-14 14:20 | Outpatient (CLI) | payer OTHER, SELFPAY ==
--- NOTE | 2024-08-14 14:23 | US_ITS ---
EXAM: Right thoracentesis. CLINICAL HISTORY: Right pleural effusion. COMPARISON: None. TECHNIQUE: The risks, benefits, and alternatives to the procedure were explained to the patient. The specific risks of bleeding, infection, and pneumothorax requiring chest tube insertion were discussed and accepted. Written informed consent was obtained. Ultrasonographic evaluation of the right lower pleural space was carried out. An adequate pocket was identified. The patient was placed in the sitting, upright position. The overlying skin was prepped and draped in sterile fashion. 1% lidocaine was administered subcutaneously for local anesthesia. Under ultrasound guidance, a 5 [place] thoracentesis needle/catheter system was advanced into the right posterior lower pleural fluid collection. Approximately 10 mL of cloudy fluid was drained. The catheter was removed, and a sterile dressing was applied. A specimen was collected and sent to the laboratory for analysis, as requested by the referring clinician. The patient tolerated the procedure well. A chest x-ray was ordered. FINDINGS: Small right pleural effusion. US/Thoracentesis W US IMPRESSION: Successful right thoracentesis. Reading Location: [facility]
[2024-08-14 14:36] VITALS: BP 147/80; PULSE 110; RESP 18; TEMP 35.7; O2SAT 99
[2024-08-14] MEDS: Lidocaine 2% /Epi 1:100 (20ml) 20 ML VIAL INFILT (14:50)
[2024-08-14 14:51] VITALS: BP 136/80; PULSE 106; RESP 16; O2SAT 99
[2024-08-14 15:00] VITALS: BP 137/83; PULSE 103; RESP 18; O2SAT 99
--- NOTE | 2024-08-14 15:25 | RAD_ITS ---
EXAM: CHEST INSP/EXP 2 VIEW CLINICAL HISTORY: Status post right thoracentesis. COMPARISON: Comparison is made with prior study dated June 28, 2024. TECHNIQUE: AP inspiration expiration. FINDINGS: No evidence of pneumothorax on the post right thoracentesis. Residual pleural- parenchymal changes persist at the right lung base. RAD/Chest Insp/Exp 2 View IMPRESSION: No evidence of pneumothorax following the right thoracentesis. Reading Location: [facility]
[2024-08-14 16:22] LABS: Absolute Lymphocyte Count 1.33 X10^3/uL (0.83-4.51); Absolute Neutrophil Count 9.3 X10^3/uL (2.0-7.7); Basophil# 0.08 X10^3/uL; Basophil% 0.7 % (0-1); Eosinophil# 0.11 X10^3/uL; Hemoglobin 12.5 g/dL (13.0-16.5); Lymphocyte # 1.33 X10^3/ul (0.83-4.51); Lymphocyte % 11.6 % (19-41); Mean Corp Hgb Conc 31.3 g/dL (32-36); Mean Corpuscular Hgb 25.2 pg (27.0-32.0); Mean Corpuscular Volume 80.5 fL (80-94); Mean Platelet Vol. 8.7 fl (6.2-12.0); Monocyte# 0.25 X10^3/uL; Monocyte% 2.2 % (0-10); NRBC Flagged by Analyzer 0 % (0-5); Neutrophil # 9.33 X10^3/uL (2.7-7.7); Neutrophil % 81.7 % (47-70); Platelet Count 357 K/mm3 (150-450); RBC Distribution Width CV 15.8 % (11.6-14.6); Red Blood Count 4.97 M/mm3 (4.6-6.2); White Blood Count 11.4 K/mm3 (4.4-11.0)
[2024-08-14 16:42] LABS: Erythrocyte Sedimentation Rate 26 mm/hr (0-20)
[2024-08-16 08:09] LABS: CRP, High Sensitivity 10.13 mg/L (0.00-3.00)
== END 2024-08-14 23:59 | disposition home or self-care (01) ==
PROVIDERS: PCP Family Medicine; Referring Provider Internal Medicine Pulmonary Disease; Visit Provider Internal Medicine Pulmonary Disease
DX: R07.9 Chest pain, unspecified (principal); J18.9 Pneumonia, unspecified organism; J91.8 Pleural effusion in other conditions classified elsewhere
CPT/HCPCS: 32555; 36415; 71046; 85025; 85652; 86141; 87070; 87075; 87077; 87205

== ENCOUNTER → 2024-09-13 | Outpatient (CLI) | payer OTHER, SELFPAY ==
[2024-09-20 21:07] LABS: Immunoglobulin A 162 mg/dL (90-386); Immunoglobulin E 8 IU/mL (6-495); Immunoglobulin G 1027 mg/dL (603-1613); Immunoglobulin M 155 mg/dL (20-172)
== END | disposition home or self-care (01) ==
LOC: LAB 17:04
PROVIDERS: PCP Family Medicine; Referring Provider Internal Medicine Pulmonary Disease; Visit Provider Internal Medicine Pulmonary Disease
DX: G47.33 Obstructive sleep apnea (adult) (pediatric) (principal); J91.8 Pleural effusion in other conditions classified elsewhere
CPT/HCPCS: 36415; 82784; 82785